=== PATIENT | male | born 1950 | race Caucasian/White ===

== ENCOUNTER 2021-08-17 11:47 | Emergency (ER) | payer OTHER, SELFPAY ==
[2021-08-17] VITALS (11 sets, daily range): BP systolic 146–165; BP diastolic 90–99; PULSE 80–83; RESP 16–17; TEMP 36.7; O2SAT 94–97
--- NOTE | 2021-08-17 12:45 | DI.RAD_ITS ---
Exam(s) XR PORTABLE CHEST AP EXAM: XR PORTABLE CHEST AP CLINICAL HISTORY: covid, cough, leukemia TECHNIQUE: 2D digital imaging was performed of the chest. One image was obtained. An AP view was ob tained. COMPARISON: No exams were available for comparison FINDINGS: MEDIASTINUM: Normal. HEART: Normal. PULMONARY VASCULATURE: Normal. LUNGS: Clear. PLEURAL SPACE: No pleural effusion or pneumothorax. BONE:Within normal limits for the patient's age. OTHER FINDINGS:Normal. IMPRESSION: No acute pulmonary findings. DATA REPOSITORY: RADIATION DOSE DELIVERED:
--- NOTE | 2021-08-17 12:59 | ED.GENADUL_ITS ---
Discharge Plan Disposition Patient Disposition: HOME Condition: Improving Discharge Details Chief Complaint: SOB Clinical Impression: COVID-19, Leukocytosis Primary Care Provider: James Miranda ED Provider: Mau Marc Home Meds and New Rx's Prescriptions: No Action chlorthalidone 25 mg Tablet 25 mg PO DAILY simvastatin 40 mg Tablet 40 mg PO QPM benzonatate 100 mg capsule PO Label Comments: TAKE ONE CAPSULE BY MOUTH THREE TIMES A DAY omeprazole 20 mg capsule,delayed release(DR/EC) 20 mg PO DAILY Label Comments: TAKE 2 CAPSULES BY MOUTH EVERY DAY losartan 100 mg Tablet 100 mg PO DAILY duloxetine 60 mg Capsule,Delayed Release(Dr/Ec) 60 mg PO DAILY Myrbetriq 25 mg Tablet Extended Release 24 Hr 25 mg PO DAILY ibrutinib 140 mg Tablet 140 mg PO TID Discharge Instructions Instructions: Leukocytosis (ED), COVID-19 (Coronavirus Disease 2019) (ED) Additional Instructions: Please follow-up with your transportation security officer/oncologist to review your white blood cell counts. Please stay hydrated; use ibuprofen and/or acetaminophen for fever/body aches. Return to the emergency department if you develop any worsening symptoms such as shortness of breath fevers chills nausea vomiting or other abnormal symptomatology. Medical Decision Making 71-year-old male history of leukemia on oral suppressive medication, no chemotherapy or radiation at this time, presents with body aches fatigue and cough, as well as mild shortness of breath, positive for COVID-19 as an outpatient, generally well-appearing no acute distress not tachycardic, no hypoxia, lungs clear bilaterally, no peripheral edema, likely symptomatic COVID versus must consider superimposed bacterial pneumonia, given age and comorbidities, patient is a candidate and is amenable for antibody infusion. Will administer dexamethasone given body aches and respiratory symptoms, will obtain basic labs to assess patient's white blood cell and red blood cell count as well as electrolytes. Will observe patient after antibody infusion and likely discharge home pending results of x-ray and labs as well as reassessment. 14: 40 patient received bebtelovimab therapy, was observed for an hour without reaction, slightly elevated white blood cell count and leukocyte count, patient was encouraged to follow-up with his transportation security officer/oncologist to review his cell counts. Asymptomatic currently resting comfortably no respiratory distress. Home care instructions and return precautions given. HPI General Date/Time Provider Initiated Documentation: 08/17/21 12:01 . HPI Narrative: 71-year-old male history of leukemia currently on oral suppressive medication, no radiation or chemotherapy, presents with COVID-19, body aches cough mild shortness of breath, referred in by his primary care physician for evaluation. Denies leg swelling or pain. Denies history of thromboembolic phenomenon. Related Data Home Medications Medication Instructions Recorded Confirmed benzonatate 100 mg capsule cap PO 08/17/21 08/17/21 chlorthalidone 25 mg tablet 25 mg PO DAILY 08/17/21 08/17/21 duloxetine 60 mg capsule,delayed 60 mg PO DAILY 08/17/21 08/17/21 release ibrutinib 140 mg tablet 140 mg PO TID 08/17/21 08/17/21 losartan 100 mg tablet 100 mg PO DAILY 08/17/21 08/17/21 mirabegron 25 mg tablet,extended 25 mg PO DAILY 08/17/21 08/17/21 release 24 hr (Myrbetriq) omeprazole 20 mg capsule,delayed 20 mg PO DAILY 08/17/21 08/17/21 release simvastatin 40 mg tablet 40 mg PO QPM 08/17/21 08/17/21 Allergies Allergy/AdvReac Type Severity Reaction Status Date / Time No Known Allergies Allergy Unverified 08/17/21 12:09 General Stated Complaint: SOB BOBO: 3 Review of Systems Narrative: Review of Systems Constitutional: Body aches, fatigue Eyes: negative ENT: negative Cardiovascular: negative Respiratory: Cough Gastrointestinal: negative : negative Musculoskeletal: negative Skin: negative Neurologic: negative Psych: negative PFSH All Active Problems (Updated 08/17/21 @ 14:41 by Mau Marc MD) COVID-19 (Acute) Leukocytosis (Acute) Social History Smoking/Tobacco Use Status: Current every day Tobacco Type: cigarettes Smoking risk assessment performed?: Yes Alcohol Intake: current Alcohol Intake frequency: 0-2 drinks per day Drug use: Never Substance use type: does not use Do you feel safe at home: Yes Do you feel safe in your relationship?: Yes Exam Narrative Exam Narrative: Physical Examination General: alert, awake, cooperative, resting comfortably, no acute distress HEENT: normocephalic, atraumatic; PERRL, EOM intact, conjunctiva normal; no nasal discharge; moist mucous membranes, oral and pharyngeal mucosa normal, tolerating secretions Neck: supple, trachea midline; full ROM Chest: normal to inspection Respiratory: normal respiratory effort, speaking in full sentences, clear to auscultation, no wheezing, rales or rhonchi Cardiac: regular rate, regular rhythm, S1S2 intact, no murmurs rubs or gallops GI: abdomen soft, non-tender, non-distended; no palpable mass or hepatosplenomegaly Skin: no lesions, rashes or trauma appreciated Neuro: AAOx3, normal speech, moving all extremities Psych: Appropriate mood and affect Course Vital Signs Vital signs: Vital Signs Temperature 36.7 C 08/17/21 12:06 Pulse 83 08/17/21 12:06 Respiratory Rate 16 08/17/21 12:06 Blood Pressure 161/94 H 08/17/21 12:06 Pulse Oximetry 97 08/17/21 12:06 Temperature 36.7 C 08/17/21 12:06 Pulse 83 08/17/21 12:06 Respiratory Rate 17 08/17/21 12:14 Respiratory Effort 08/17/21 12:14 Respiratory Depth Normal 08/17/21 12:14 Respiratory Pattern Normal 08/17/21 12:14 Blood Pressure 161/94 H 08/17/21 12:06 Pulse Oximetry 97 08/17/21 12:06
[2021-08-17 13:17] LABS: HCT 41.9 % (40.0-50.0); HGB 13.8 g/dL (13.5-17.5); MCH 29.3 pg (27.0-33.0); MCHC 32.9 % (32.0-36.0); MCV 89 fL (80-95); MPV 10.9 fL (8.0-11.0); Platelet Count 187 10^3/uL (130-400); RBC 4.71 10^6/uL (4.36-5.78); RDW 13.5 % (11.8-14.1); WBC 12.17 10^3/uL (4.4-10.8)
[2021-08-17 13:32] LABS: ALT 21 U/L (16-63); AST 34 U/L (15-37); Albumin 3.7 g/dL (3.4-5.0); Alkaline Phosphatase 119 U/L (46-116); Anion Gap 7.8 mmol/L (3-11); BUN 19 mg/dL (7-18); Bilirubin, Total 0.4 mg/dL (0.2-1.0); CO2 27.2 mmol/L (21.0-32.0); CREATININE 1.4 mg/dL (0.70-1.30); Calcium 9.1 mg/dL (8.5-10.1); Chloride 102 mmol/L (98-107); Glucose 93 mg/dL (74-106); Potassium 4.8 mmol/L (3.5-5.1); Sodium 137 mmol/L (136-145); Total Protein 7.7 g/dL (6.4-8.2)
[2021-08-17 13:40] LABS: Absolute Lymphocyte Count 7.67 10^3/uL (1.2-3.4); Absolute Neutrophil Count 3.41 10^3/uL (1.2-6.7); Atypical Lymphocytes % 5; Diff Comment Manual Differential; RBC Morphology Normal
[2021-08-17] MEDS: Dexamethasone 10 MG/ML VIAL IVP (13:42)
--- NOTE | 2021-08-17 13:47 | DI.VRAD_ITS ---
PROCEDURE INFORMATION: Exam: XR Chest Exam date and time: 08/17/2021 1:24 PM Age: 71 years old Clinical indication: Cough and other: Covid, leukemia TECHNIQUE: Imaging protocol: XR of the chest. Views: 1 view. COMPARISON: No relevant images were readily available for comparison purposes. FINDINGS: Lungs: No consolidation. Pleural spaces: No sizable pleural effusion. No pneumothorax. Heart/Mediastinum: Cardiomediastinal silhouette is within normal limits. Bones/joints: No acute displaced fracture or dislocation. IMPRESSION: No acute cardiopulmonary process. Dictated and Authenticated by: Bishnu Greenfield MD. Ordering:SOFIA Lenó MD
--- NOTE | 2021-08-17 14:27 | NUR.NOTE ---
pt is drinking water and randell mildred Nursing Note:
== END 2021-08-17 15:01 | disposition home or self-care (01) ==
PROVIDERS: Emergency Provider Emergency Medicine; PCP Nurse Practitioner Family
DX: U07.1 COVID-19 (principal); D72.829 Elevated white blood cell count, unspecified; R05.1 Acute cough; C95.00 Acute leukemia of unspecified cell type not having achieved remission
CPT/HCPCS: 80053; 96374; 96375; 99284; Q0222; 71045; 85025; 99283; J1100

== ENCOUNTER 2021-11-02 20:51 | Emergency (ER) | payer OTHER, MEDICARE, BC, SELFPAY ==
[2021-11-02 20:57] VITALS: BP 115/84; PULSE 91; RESP 16; TEMP 36.9; O2SAT 98
--- NOTE | 2021-11-02 21:00 | DI.CT_ITS ---
Exam(s) CT LUMBAR SPINE W EXAM: CT LUMBAR SPINE W CLINICAL HISTORY: cancer patient, sudden righ leg weakness and numbn. TECHNIQUE: Imaging Protocol: Axial computed tomography images with coronal and sagittal reformatted images were created and reviewed CONTRAST MATERIAL: Noncontrast COMPARISON: No exams were available for comparison FINDINGS: Bones: The last intervertebral disc space is designated the L5/S1 level for the numbering purpose of this examination. The vertebral body heights are well maintained. Alignment is satisfactory. No frac ture is seen. No destructive bony lesions. There are mild degenerative disc changes as well as facet degenerative changes. The discs are normal in in height throughout and show mild bulging. No central canal stenosis or neural foraminal narrow ing is seen. Soft Tissues: The visualized SI joints and sacrum are will maintained. The paraspinal soft tissues a re unremarkable. There are atherosclerotic changes of the aorta and iliac arteries with some narrowin g of the luminal diameter of the iliac arteries.. IMPRESSION: Mild degenerative changes. No focal disc herniation, neural foraminal narrowing or central canal torie nosis. No suspicious bony lesions. RADIATION DOSE DELIVERED: 477.48mGy.cm Total DLP DATA REPOSITORY: All CT scans at this facility are submitted to the National Radiology Data Registry (NRDR) Dose Index Registry (DIR) with the [employer] (A[employer]). RADIATION OPTIMIZATION: All CT scans at this facility use at least one of these dose optimization te chniques: automated exposure control; mA and/or kV adjustment per patient size (includes targeted exa ms where dose is matched to clinical indication); or iterative reconstruction.
[2021-11-02] MEDS: methylPREDNISolone SUCC 125 MG VIAL IVP (21:17)
--- NOTE | 2021-11-02 21:18 | ED.GENADUL_ITS ---
Discharge Plan Disposition Patient Disposition: HOME Condition: Good Discharge Details Clinical Impression: Lumbar radiculopathy, acute Primary Care Provider: James Miranda ED Provider: Sreedhar Barkley Home Meds and New Rx's Prescriptions: Continued chlorthalidone 25 mg Tablet 25 mg PO DAILY omeprazole 20 mg capsule,delayed release(DR/EC) 20 mg PO DAILY Label Comments: TAKE 2 CAPSULES BY MOUTH EVERY DAY losartan 100 mg Tablet 100 mg PO DAILY Myrbetriq 25 mg Tablet Extended Release 24 Hr 25 mg PO DAILY ibrutinib 140 mg Tablet 140 mg PO TID atorvastatin 40 mg Tablet 40 mg PO HS amlodipine 5 mg Tablet 5 mg PO DAILY Discharge Instructions Instructions: Lumbar Radiculopathy (ED) Additional Instructions: At this time you have what is called lumbar radiculopathy where the disc in your lumbar spine is pushing on the nerve that is causing the numbness tingling and mild weakness in your leg. Please take the steroid pills as directed. Take 60 mg every day for the next 4 days. Do not take any Tylenol or Motrin or aspirin or spicy foods as this could cause an irritation in your stomach. Please use a heating pad on your back if you do develop back pain. Please follow-up closely with the CT for further discussion of potential MRI, and potential orthopedic spine consult. If you notice any worsening of your symptoms, or any new symptoms such as vomiting, diarrhea, fever, chills, shortness of breath, chest pain, numbness, weakness, numbness or tingling in your groin, loss of control of her bowels or bladder, or fainting , please return immediately to the emergency department for reevaluation. Please follow up with your primary care provider as soon as possible for reassessment and reevaluation. As always, it was a pleasure participating in your medical care today. Referrals: James Miranda [Primary Care Provider] - Medical Decision Making This is a very pleasant 71-year-old male with a past medical history of leukemia for which he is not actively being treated for, but will be starting chemotherapy shortly but who is taking ibrutinib, hypertension, high cholesterol, who presents today for evaluation of right lower extremity weakness and numbness. Patient states that yesterday while at the CT he had a brief episode lasting about 10 seconds where his entire right leg felt numb and tingly. This was while he was walking. It resolved completely on its own. And then last evening at about 6 PM while he was laying on the couch his whole leg again felt like it was asleep, and he noticed it became significantly weak. He had no heavy lifting trauma or twisting prior to this. Symptoms persisted throughout the evening the following day and continued through tonight. He has noticed that his leg is notably weak when walking but he is still able to walk with a limp. He denies any back pain or leg pain. He denies any abdominal pain chest pain or shortness of breath. No history of back injuries or previous back surgeries. No other complaints at this time. He did not take any medications to help with the symptoms. He denies ever having symptoms like this before. Patient denies any saddle anesthesia, numbness or tingling in the groin, change in sensation when wiping. Patient denies any change in sensation during sexual intercourse, difficulty achieving or maintaining an erection or ejaculation, bowel or bladder incontinence, leakage, or retention. Patient denies any at ypical falls. Exam demonstrates intact strength strength bilaterally for the lower extremities, 5 out of 5 for the left, 4 out of 5 for the right. Reflexes intact, sensation intact however the patient does demonstrate continued subjective numbness without palpation. He feels like my legs asleep. Vascular exam demonstrates no deficits. Reflexes are intact. Femoral artery demonstrates good pulse. Rectal exam and spinal assessment demonstrate no tenderness to rectal tone diminishment. Differential is highest for peripheral neuropathy/radiculopathy as a cause of his weakness. May have been secondary to a slipped disc, but also there is concern for potential mass or lesion secondary to his history of leukemia. We will get a CT scan with contrast to further evaluate. There is no evidence of focal neurologic deficit for the rest of the patient's exam to suggest a central etiology. Will monitor closely and reassess. We will give steroids here. 11:[address] scan shows evidence of mild disc bulging throughout the lumbar spine. No evidence of central canal compression. Laboratory work-up is stable aside from an elevated white count which correlates with his chronic disease. Electrolytes stable, patient still shows no signs of cauda equina syndrome. Patient is able to ambulate well, he does have a cane. Patient stable for discharge and she shows currently no emergent signs of cord compression. Will recommend close follow-up with his primary care provider and potential spine surgery on an outpatient basis. We will give a prednisone pack for the next 4 days. Since [facility] he would not be able to get it until later this week, and so we will give him the appropriate dose here for completion of his prescription on an outpatient basis. Will recommend 60 mg daily for the next 4 days. I have extensively reviewed the treatment plan and discharge instructions with the patient. I have addressed all patient concerns at this time. The patient was made aware of what symptoms to monitor for that would warrant a return to the emergency department. Discussed the plan with the patient, they demonstrate verbal understanding and agreement with our assessment and plan at this time. The documentation in this chart was dictated using [employer] dictation software. Please excuse any dictation errors. FINDINGS: Bones/joints: No acute fracture. Normal alignment. No lytic destructive process. Faint sclerosis in the left iliac bone measuring about 10 mm has some punctate foci of trabecular coarsening that imply that this is associated with a hemangioma, with some fatty lucency of cancellous bone adjacent. This could be easily confirmed by enhanced MRI if desired. Tiny bone island right iliac axial image 70, 3 mm. Discs/Spinal canal/Neural foramina: There are mild degenerative multilevel disc protrusions, bulge like L1-L2 and L2-L3. L3-L4: Mild left eccentric disc protrusion into the foramen without significant foraminal encroachment. No central stenosis. L4-L5: Mild disc bulging. No central stenosis. L5-S1: Mild right eccentric disc protrusion without central or foraminal encroachment. Soft tissues: No paraspinous mass apparent. Moderate aortoiliac calcification without aneurysm. Partial imaging of the dome of the bladder demonstrates trabeculation of the wall indicating probable muscular hypertrophy. IMPRESSION: No fracture or destructive process. 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 Thank you for allowing us to participate in the care of your patient. Dictated and Authenticated by: Beni Lovett MD 11/02/2021 10:44 PM Eastern Time ([place] & [place]) HPI General Date/Time Provider Initiated Documentation: 11/02/21 20:53 . HPI Narrative: This is a very pleasant 71-year-old male with a past medical history of leukemia for which he is not actively being treated for, but will be starting chemotherapy shortly but who is taking ibrutinib, hypertension, high cholesterol, who presents today for evaluation of right lower extremity weakness and numbness. Patient states that yesterday while at the CT he had a brief episode lasting about 10 seconds where his entire right leg felt numb and tingly. This was while he was walking. It resolved completely on its own. And then last evening at about 6 PM while he was laying on the couch his whole leg again felt like it was asleep, and he noticed it became significantly weak. He had no heavy lifting trauma or twisting prior to this. Symptoms persisted throughout the evening the following day and continued through tonight. He has noticed that his leg is notably weak when walking but he is still able to walk with a limp. He denies any back pain or leg pain. He denies any abdominal pain chest pain or shortness of breath. No history of back injuries or previous back surgeries. No other complaints at this time. He did not take any medications to help with the symptoms. He denies ever having symptoms like this before. Patient denies any saddle anesthesia, numbness or tingling in the groin, change in sensation when wiping. Patient denies any change in sensation during sexual intercourse, difficulty achieving or maintaining an erection or ejaculation, bowel or bladder incontinence, leakage, or retention. Patient denies any atypical falls. Related Data Home Medications Medication Instructions Recorded Confirmed chlorthalidone 25 mg tablet 25 mg PO DAILY 08/17/21 11/02/21 ibrutinib 140 mg tablet 140 mg PO TID 08/17/21 11/02/21 losartan 100 mg tablet 100 mg PO DAILY 08/17/21 11/02/21 mirabegron 25 mg tablet,extended 25 mg PO DAILY 08/17/21 11/02/21 release 24 hr (Myrbetriq) omeprazole 20 mg capsule,delayed 20 mg PO DAILY 08/17/21 11/02/21 release amlodipine 5 mg tablet 5 mg PO DAILY 11/02/21 11/02/21 atorvastatin 40 mg tablet 40 mg PO HS 11/02/21 11/02/21 Allergies Allergy/AdvReac Type Severity Reaction Status Date / Time No Known Allergies Allergy Unverified 11/02/21 21:03 General Stated Complaint: GenMedical BOBO: 3 Review of Systems All systems reviewed & are unremarkable except as noted in HPI and below PFSH All Active Problems (Updated 11/02/21 @ 23:17 by Sreedhar Barkley DO) COVID-19 (Acute) Lumbar radiculopathy, acute (Acute) Medical History Hypertension Social History Smoking/Tobacco Use Status: Current every day Tobacco Type: cigarettes Smoking risk assessment performed?: Yes Alcohol Intake: current Alcohol Intake frequency: 0-2 drinks per day Drug use: Never Substance use type: does not use Do you feel safe at home: Yes Do you feel safe in your relationship?: Yes Exam Narrative Exam Narrative: 1.Const: Well-nourished, Well-developed, appearing stated age 2.Eyes: PERRL, no conjunctival injection, and symmetrical lids. 3.ENT: Atraumatic external nose and ears. Moist MM. Neck: Symmetric, trachea midline, No thyromegaly. 4.CVS: +S1/S2, No murmurs or gallops. Peripheral pulses 2+ and equal in all extremities. Brisk capillary refill in all extremities. 5.RESP: Unlabored respiratory effort. Clear to auscultation bilaterally. No wheezes rales or rhonchi 6.GI: Soft, Nontender/Nondistended, No hepatosplenomegaly. No guarding or rebound. 7.MSK: Normocephalic/Atraumatic, Extremities w/o deformity or ttp No cyanosis or clubbing, Normal movement of all extremities No midline tenderness to palpation over the CTLS spine. Normal ROM in flexion, extension, side bend, and rotation. Patient has +5 out of 5 strength in the left lower extremities in dorsiflexion and plantarflexion, knee flexion and extension, hip flexion and extension. Right lower extremity demonstrates 4 out of 5 strength for plantar and dorsiflexion of the foot, and 4 out of 5 strength for flexion and extension at the hip and knee. +2 patellar reflexes bilaterally. Sensation is notably intact throughout in all areas including the inner thighs, the entire right lower extremity, and the foot. Downward Babinski is present bilaterally. Normal strength for dorsiflexion and plantar flexion of the great toe bilaterally. There is +2 over 2 dorsalis pedis pulses bilaterally. There is normal sensation to the skin with light touch at the foot, knee, and hip. Normal saddle sensation. Good sensation over the deep sural nerve area bilaterally. Rectal exam demonstrates good rectal tone and perirectal sensation. Reflexes are +2 over 4 in the patellar reflex bilaterally. Patient demonstrates +2 dorsalis pedis posterior tibial pulse bilaterally. Brisk capillary refill for all toes less than 3 seconds. +2 femoral pulses bilaterally. 8.Skin: Warm, Dry. No rashes or lesions. 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 Sensation grossly intact, please see musculoskeletal 10.Psych: (AAO) x3. Appropriate mood and affect Course Vital Signs Vital signs: Vital Signs Temperature 36.9 C 11/02/21 20:57 Pulse 91 H 11/02/21 20:57 Respiratory Rate 16 11/02/21 20:57 Blood Pressure 115/84 11/02/21 20:57 Pulse Oximetry 98 11/02/21 20:57 Temperature 36.9 C 11/02/21 20:57 Pulse 91 H 11/02/21 20:57 Respiratory Rate 16 11/02/21 20:57 Respiratory Effort Non-Labored 11/02/21 21:05 Respiratory Depth Normal 11/02/21 21:05 Respiratory Pattern Normal 11/02/21 21:05 Blood Pressure 115/84 11/02/21 20:57 Pulse Oximetry 98 11/02/21 20:57
[2021-11-02 21:25] LABS: Abs Immature Grans 0.06 10^3/uL (0.0-0.06); HCT 42.9 % (40.0-50.0); MCH 28.9 pg (27.0-33.0); MCHC 32.6 % (32.0-36.0); MCV 89 fL (80-95); MPV 10.9 fL (8.0-11.0); Platelet Count 272 10^3/uL (130-400); RBC 4.84 10^6/uL (4.36-5.78); RDW-SD 42.1 fL; WBC 19.57 10^3/uL (4.4-10.8)
[2021-11-02 21:37] LABS: Absolute Lymphocyte Count 12.72 10^3/uL (1.2-3.4); Absolute Monocyte Count 0.78 10^3/uL (0.1-0.8); Absolute Neutrophil Count 5.87 10^3/uL (1.2-6.7); Diff Comment Manual Differential
[2021-11-02 21:43] LABS: ALT 17 U/L (16-63); AST 11 U/L (15-37); Albumin 3.9 g/dL (3.4-5.0); Alkaline Phosphatase 117 U/L (46-116); Anion Gap 8.6 mmol/L (3-11); BUN 21 mg/dL (7-18); Bilirubin, Total 0.3 mg/dL (0.2-1.0); CO2 29.4 mmol/L (21.0-32.0); CREATININE 1.3 mg/dL (0.70-1.30); Calcium 8.9 mg/dL (8.5-10.1); Chloride 101 mmol/L (98-107); Estimated GFR 54.57 (mL/min/1.73m2); Glucose 108 mg/dL (74-106); Potassium 3.6 mmol/L (3.5-5.1); Sodium 139 mmol/L (136-145); Total Protein 7.9 g/dL (6.4-8.2)
--- NOTE | 2021-11-02 22:45 | DI.VRAD_ITS ---
PROCEDURE INFORMATION: Exam: CT Lumbar Spine With Contrast Exam date and time: 11/02/2021 9:53 PM Age: 71 years old Clinical indication: Condition or disease; Cancer, metastatic (secondary site lumbar) TECHNIQUE: Imaging protocol: Computed tomography of the lumbar spine with contrast. Contrast material: OMNIPAQUE 350; Contrast volume: 100 ml; Contrast route: INTRAVENOUS (IV); COMPARISON: No relevant prior studies available. FINDINGS: Bones/joints: No acute fracture. Normal alignment. No lytic destructive process. Faint sclerosis in the left iliac bone measuring about 10 mm has some punctate foci of trabecular coarsening that imply that this is associated with a hemangioma, with some fatty lucency of cancellous bone adjacent. This could be easily confirmed by enhanced MRI if desired. Tiny bone island right iliac axial image 70, 3 mm. Discs/Spinal canal/Neural foramina: There are mild degenerative multilevel disc protrusions, bulge like L1-L2 and L2-L3. L3-L4: Mild left eccentric disc protrusion into the foramen without significant foraminal encroachment. No central stenosis. L4-L5: Mild disc bulging. No central stenosis. L5-S1: Mild right eccentric disc protrusion without central or foraminal encroachment. Soft tissues: No paraspinous mass apparent. Moderate aortoiliac calcification without aneurysm. Partial imaging of the dome of the bladder demonstrates trabeculation of the wall indicating probable muscular hypertrophy. IMPRESSION: No fracture or destructive process. 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 Dictated and Authenticated by: Beni Lovett MD. Ordering:JANE Eli MD
[2021-11-02 23:33] VITALS: BP 184/99; PULSE 84; RESP 18; TEMP 36.9; O2SAT 99
[2021-11-02] MEDS: predniSONE 20 MG TAB 240 MG PO (23:34)
== END 2021-11-02 23:42 | disposition home or self-care (01) ==
PROVIDERS: Emergency Provider Student in an Organized Health Care Education/Training Program; PCP Nurse Practitioner Family
DX: M54.16 Radiculopathy, lumbar region (principal)
CPT/HCPCS: 36415; 80053; 96374; 99284; 72132; 85025; 99283; J2930; J7512

== ENCOUNTER 2022-07-11 13:24 | Emergency (ER) | payer OTHER, MEDICARE, BC, SELFPAY ==
[2022-07-11 13:29] VITALS: BP 181/73; PULSE 80; RESP 20; TEMP 36.7; O2SAT 98
--- NOTE | 2022-07-11 14:00 | DI.RAD_ITS ---
Exam(s) XR CHEST 2V PA LATERAL EXAM: XR CHEST 2V PA LATERAL CLINICAL HISTORY: chills. TECHNIQUE: 2D digital imaging was performed. COMPARISON: CR,XR XR PORTABLE CHEST AP from 08/17/2021 FINDINGS: 2 views: Heart size is normal. The mediastinum is not widened. No left-sided infiltrate evident. Slight blunting of left costophrenic angle is unchanged. On the right side there is a 1 cm nodular density above the medial aspect of the hemidiaphragm adjace nt to the heart border., possibly significant. IMPRESSION: Possible subtle 1 cm right lung nodule. Chronically blunted left costophrenic angle which may indicate small amount of pleural fluid at this location. DATA REPOSITORY: RADIATION DOSE DELIVERED:
[2022-07-11 14:48] LABS: HCT 44.2 % (40.0-50.0); HGB 14.8 g/dL (13.5-17.5); MCH 29.7 pg (27.0-33.0); MCHC 33.5 % (32.0-36.0); MCV 89 fL (80-95); MPV 11.6 fL (8.0-11.0); RBC 4.98 10^6/uL (4.36-5.78); RDW 13.6 % (11.8-14.1); RDW-SD 44.5 fL; WBC 19.83 10^3/uL (4.4-10.8)
[2022-07-11 15:04] LABS: ALT 19 U/L (16-63); AST 15 U/L (15-37); Albumin 4.2 g/dL (3.4-5.0); Alkaline Phosphatase 129 U/L (46-116); Anion Gap 5.8 mmol/L (3-11); BUN 22 mg/dL (7-18); Bilirubin, Total 0.4 mg/dL (0.2-1.0); CO2 30.2 mmol/L (21.0-32.0); CREATININE 1.3 mg/dL (0.70-1.30); Calcium 9.9 mg/dL (8.5-10.1); Chloride 102 mmol/L (98-107); Glucose 145 mg/dL (74-106); Sodium 138 mmol/L (136-145); Total Protein 8.1 g/dL (6.4-8.2)
[2022-07-11 15:08] LABS: Absolute Neutrophil Count 8.13 10^3/uL (1.2-6.7); Atypical Lymphocytes % 5
[2022-07-11 15:09] LABS: Diff Comment Manual Differential; RBC Morphology Normal
[2022-07-11 15:10] LABS: Platelet Count 237 10^3/uL (130-400)
[2022-07-11 15:25] LABS: COVID-19 PCR Negative (Negative); Influenza A PCR Negative (Negative); Influenza B PCR Negative (Negative); RSV PCR Negative (Negative)
[2022-07-11 15:26] LABS: Source Nasopharynx
[2022-07-11 15:28] LABS: Bilirubin Small (Negative); Blood Negative (Negative); Clarity Clear (Clear); Glucose Negative (Negative); Ketones Negative (Negative); Leukocyte Esterase Negative (Negative); Nitrite Negative (Negative); Specific Gravity >= 1.030 (1.005-1.025)
[2022-07-11 15:38] VITALS: BP 163/92; PULSE 67; RESP 18; TEMP 36.7; O2SAT 95
[2022-07-11 15:38] LABS: Bacteria Rare HPF (Negative); C & S Indicated? No; Casts Negative LPF (Negative); Crystals Negative HPF (Negative); Epithelial Cells Rare HPF (Negative); Mucus Trace (Negative); RBC 0-2 HPF (0-2); WBC 0-2 HPF (0-5)
--- NOTE | 2022-07-11 15:49 | W.ED.GENAD ---
Discharge Plan Disposition Patient Disposition: Home Discharge Details Clinical Impression: Chills Primary Care Provider: James Miranda ED Provider: Stella Chavez Home Meds and New Rx's Prescriptions: Continued chlorthalidone 25 mg Tablet 25 mg PO DAILY omeprazole 20 mg capsule,delayed release(DR/EC) 20 mg PO DAILY Patient Comments: TAKE 2 CAPSULES BY MOUTH EVERY DAY losartan 100 mg Tablet 100 mg PO DAILY Myrbetriq 25 mg Tablet Extended Release 24 Hr 25 mg PO DAILY ibrutinib 140 mg Tablet 140 mg PO TID atorvastatin 40 mg Tablet 40 mg PO HS amlodipine 5 mg Tablet 5 mg PO DAILY Discharge Instructions Additional Instructions: Please follow-up with your oncologist, let them know your white blood cell count is 19,000, this is what it was last year as well, you should have this rechecked at your next appointment The remainder of your labs including your lactate are within normal limits, your blood cultures are pending, we will call you if these are positive Your chest x-ray and urinalysis do not show evidence of acute abnormality, you do have a nodule on your chest x-ray You should follow-up on this nodule with your doctor at your scheduled appointment on the on all your prescribed medications She did develop a temperature over 100.4 and persistent chills, please be reassessed immediately Referrals: James Miranda [Primary Care Provider] - 1 day Discharge Data Discharge Date/Time-TO BE ENTERED AT DEPARTURE: 07/11/22 15:59 Medical Decision Making 71-year-old male presenting for chills, secondary to comorbidities and current complaints, I did order blood cultures, lactic, diagnostic blood work, white blood cell count of 19,000, consistent with his [place] level, chest x-ray and urinalysis do not show evidence of acute infection, blood cultures pending, lactate negative Encouraged to follow the oncologist, no indication for admission or any emergent intervention Discharged home asymptomatic in stable condition Return precautions reviewed and patient expressed understanding HPI General Date/Time Provider Initiated Documentation: 07/11/22 13:56. HPI Narrative: This 71-year-old male presents with chills for the past 24 hours intermittently. Denies any current symptoms. Denies any chest pain, shortness of breath, dizziness, weakness, fever, urinary symptoms. Denies any stiff neck. 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 Does report that he flew from [place] which is where he states during the winter months on the . Did recently increase his oral chemotherapy from 2 pills to 3 pills. Related Data Home Medications Medication Instructions Recorded Confirmed chlorthalidone 25 mg tablet 25 mg PO DAILY 08/17/21 07/11/22 ibrutinib 140 mg tablet 140 mg PO TID 08/17/21 07/11/22 losartan 100 mg tablet 100 mg PO DAILY 08/17/21 07/11/22 mirabegron 25 mg tablet,extended 25 mg PO DAILY 08/17/21 07/11/22 release 24 hr (Myrbetriq) omeprazole 20 mg capsule,delayed 20 mg PO DAILY 08/17/21 07/11/22 release amlodipine 5 mg tablet 5 mg PO DAILY 11/02/21 11/02/21 atorvastatin 40 mg tablet 40 mg PO HS 11/02/21 07/11/22 Allergies Allergy/AdvReac Type Severity Reaction Status Date / Time No Known Allergies Allergy Unverified 07/11/22 13:53 General Stated Complaint: GenMedical BOBO: 4 PFSH All Active Problems (Updated 07/11/22 @ 15:48 by FLORY Muir) COVID-19 (Acute) Chills (Acute) Medical History Hypertension Social History Smoking/Tobacco Use Status: Current every day Tobacco Type: cigarettes Smoking risk assessment performed?: Yes Alcohol Intake: current Alcohol Intake frequency: 0-2 drinks per day Drug use: Never Substance use type: does not use Do you feel safe at home: Yes Do you feel safe in your relationship?: Yes Exam Narrative Exam Narrative: Patient is calm, cooperative, no acute distress, no meningismus, moist mucous membranes, pupils equal round reactive to light accommodation, lungs clear to auscultation, cardiac rate rhythm regular, no abdominal tenderness, fully alert and oriented, no rashes or lesions noted Course Vital Signs Vital signs: Vital Signs Temperature 36.7 C 07/11/22 13:29 Pulse 80 07/11/22 13:29 Respiratory Rate 20 07/11/22 13:29 Blood Pressure 181/73 H 07/11/22 13:29 Pulse Oximetry 98 07/11/22 13:29 Temperature 36.7 C 07/11/22 15:38 Temperature Source Temporal Artery Scan 07/11/22 15:38 Pulse 67 07/11/22 15:38 Respiratory Rate 18 07/11/22 15:38 Respiratory Effort Normal, Non-Labored 07/11/22 15:42 Respiratory Depth Normal 07/11/22 15:42 Respiratory Pattern Normal 07/11/22 15:42 Blood Pressure 163/92 H 07/11/22 15:38 Blood Pressure Position Sitting 07/11/22 13:29 Pulse Oximetry 95 07/11/22 15:38 Oxygen Delivery Method Room Air 07/11/22 15:38 Oxygen Flow Rate 0 07/11/22 15:38 Pain Level 0 07/11/22 13:29 Lab/Test Results Lab/Test Results: 07/11/22 15:10 Blood Blood Culture - Pending 07/11/22 14:31 Blood Blood Culture - Pending Laboratory Tests Range/Units 07/11/22 07/11/22 07/11/22 14:31 14:31 14:31 WBC (4.4-10.8) 10^3/uL RBC (4.36-5.78) 10^6/uL Hgb (13.5-17.5) g/dL Hct (40.0-50.0) % MCV (80-95) fL MCH (27.0-33.0) pg MCHC (32.0-36.0) % RDW (11.8-14.1) % Plt Count (130-400) 10^3/uL MPV (8.0-11.0) fL Immature Gran % Neutrophils % Lymphocytes % Atypical Lymphs % Monocytes % Eosinophils % Basophils % Nucleated RBC % (0.0-0.3) % Absolute Neutrophils (1.2-6.7) 10^3/uL Absolute Lymphocytes (1.2-3.4) 10^3/uL Absolute Monocytes (0.1-0.8) 10^3/uL Absolute Eosinophils (0.0-0.7) 10^3/uL Absolute Basophils (0.0-0.2) 10^3/uL RBC Morphology VBG Lactate (0.6-1.4) mmol/L 1.0 Sodium (136-145) mmol/L 138 Potassium (3.5-5.1) mmol/L 4.0 Chloride (98-107) mmol/L 102 Carbon Dioxide (21.0-32.0) mmol/L 30.2 Anion Gap (3-11) mmol/L 5.8 BUN (7-18) mg/dL 22 H Creatinine (0.70-1.30) mg/dL 1.3 Est GFR (CKD-EPI 2020) (mL/min/1.73m2) 59.10 Glucose (74-106) mg/dL 145 H Calcium (8.5-10.1) mg/dL 9.9 Total Bilirubin (0.2-1.0) mg/dL 0.4 AST (15-37) U/L 15 ALT (16-63) U/L 19 Alkaline Phosphatase (46-116) U/L 129 H Total Protein (6.4-8.2) g/dL 8.1 Albumin (3.4-5.0) g/dL 4.2 Urine Color (Yellow) Urine Clarity (Clear) Urine pH (5-8) Ur Specific Addison (1.005-1.025) Urine Protein (Negative) mg/dL Urine Ketones (Negative) mg/dL Urine Blood (Negative) Urine Nitrite (Negative) Urine Bilirubin (Negative) Urine Urobilinogen (Up to 0.2) mg/dL Ur Leukocyte Esterase (Negative) Urine RBC (0-2) HPF Urine WBC (0-5) HPF Ur Epithelial Cells (Negative) HPF Urine Crystals (Negative) HPF Urine Bacteria (Negative) HPF Urine Casts (Negative) LPF Urine Mucus (Negative) Ur Culture Indicated? Urine Glucose (Negative) mg/dL COVID-19 Source Nasopharynx SARS-CoV-2 (PCR) (Negative) Negative Influenza Type A (PCR) (Negative) Negative Influenza Type B (PCR) (Negative) Negative RSV (PCR) (Negative) Negative Range/Units 07/11/22 07/11/22 14:31 15:14 WBC (4.4-10.8) 10^3/uL 19.83 H RBC (4.36-5.78) 10^6/uL 4.98 Hgb (13.5-17.5) g/dL 14.8 Hct (40.0-50.0) % 44.2 MCV (80-95) fL 89 MCH (27.0-33.0) pg 29.7 MCHC (32.0-36.0) % 33.5 RDW (11.8-14.1) % 13.6 Plt Count (130-400) 10^3/uL 237 MPV (8.0-11.0) fL 11.6 H Immature Gran % 0.0 Neutrophils % 41.0 Lymphocytes % 52.0 Atypical Lymphs % 5 Monocytes % 1.0 Eosinophils % 1.0 Basophils % 0.0 Nucleated RBC % (0.0-0.3) % 0.0 Absolute Neutrophils (1.2-6.7) 10^3/uL 8.13 H Absolute Lymphocytes (1.2-3.4) 10^3/uL 11.30 H Absolute Monocytes (0.1-0.8) 10^3/uL 0.20 Absolute Eosinophils (0.0-0.7) 10^3/uL 0.20 Absolute Basophils (0.0-0.2) 10^3/uL 0.00 RBC Morphology Normal VBG Lactate (0.6-1.4) mmol/L Sodium (136-145) mmol/L Potassium (3.5-5.1) mmol/L Chloride (98-107) mmol/L Carbon Dioxide (21.0-32.0) mmol/L Anion Gap (3-11) mmol/L BUN (7-18) mg/dL Creatinine (0.70-1.30) mg/dL Est GFR (CKD-EPI 2020) (mL/min/1.73m2) Glucose (74-106) mg/dL Calcium (8.5-10.1) mg/dL Total Bilirubin (0.2-1.0) mg/dL AST (15-37) U/L ALT (16-63) U/L Alkaline Phosphatase (46-116) U/L Total Protein (6.4-8.2) g/dL Albumin (3.4-5.0) g/dL Urine Color (Yellow) Yellow Urine Clarity (Clear) Clear Urine pH (5-8) 6.0 Ur Specific Addison (1.005-1.025) >= 1.030 H Urine Protein (Negative) mg/dL Trace H Urine Ketones (Negative) mg/dL Negative Urine Blood (Negative) Negative Urine Nitrite (Negative) Negative Urine Bilirubin (Negative) Small H Urine Urobilinogen (Up to 0.2) mg/dL 1.0 H Ur Leukocyte Esterase (Negative) Negative Urine RBC (0-2) HPF 0-2 Urine WBC (0-5) HPF 0-2 Ur Epithelial Cells (Negative) HPF Rare Urine Crystals (Negative) HPF Negative Urine Bacteria (Negative) HPF Rare Urine Casts (Negative) LPF Negative Urine Mucus (Negative) Trace Ur Culture Indicated? No Urine Glucose (Negative) mg/dL Negative COVID-19 Source SARS-CoV-2 (PCR) (Negative) Influenza Type A (PCR) (Negative) Influenza Type B (PCR) (Negative) RSV (PCR) (Negative) PAWSS Have you Been Recently Intoxicated or Drunk Within the Last 30 days?: No Have you Ever Experienced Previous Episodes of Alcohol Withdrawal?: No Have you ever Experienced Withdrawal Seizures?: No Have you ever Experienced Delirium Tremens(DT)s?: No Have you ever undergone Alcohol Rehabilitation Treatment (i.e, inpt ot outpatient treatment programs)?: No Have you ever Experienced Blackouts?: No Have you ever Combined Alcohol with other Downers within the last 90 days?: No Have you ever Combined Alcohol with any other Substance of Abuse during the last 90 days?: No Positive Blood Alcohol level on Presentation? [PCS.BAL]: No Evidence of Increased Autonomic Activity (i.e. HR>120, tremor, sweating, agitation, nausea)?: No Result: 0
== END 2022-07-11 15:59 | disposition home or self-care (01) ==
PROVIDERS: Emergency Provider Physician Assistant; PCP Nurse Practitioner Family
DX: R68.83 Chills (without fever) (principal); I10 Essential (primary) hypertension; C91.10 Chronic lymphocytic leukemia of B-cell type not having achieved remission; Z20.822 Contact with and (suspected) exposure to COVID-19
CPT/HCPCS: 36415; 80053; 87040; 87637; 99283; 71046; 81003; 81015; 83605; 85025

== ENCOUNTER 2022-12-07 10:08 | Emergency (ER) | payer OTHER, SELFPAY ==
[2022-12-07 10:22] VITALS: BP 127/65; PULSE 74; RESP 20; TEMP 36.8; O2SAT 100
--- NOTE | 2022-12-07 10:33 | ED.GENADUL_ITS ---
Discharge Plan Disposition Patient Disposition: Home Condition: Stable Discharge Details Clinical Impression: COVID Primary Care Provider: JACQUELINE PAULSON ED Provider: Elias Armenta Home Meds and New Rx's Prescriptions: Continued chlorthalidone 25 mg Tablet 25 mg PO DAILY omeprazole 20 mg capsule,delayed release(DR/EC) 20 mg PO DAILY Patient Comments: TAKE 2 CAPSULES BY MOUTH EVERY DAY losartan 100 mg Tablet 100 mg PO DAILY Myrbetriq 25 mg Tablet Extended Release 24 Hr 25 mg PO DAILY aspirin 81 mg Tablet,Delayed Release (Dr/Ec) 81 mg PO DAILY cholecalciferol (vitamin D3) 50 mcg (2,000 unit) Tablet 50 mcg PO DAILY cyanocobalamin (vitamin B-12) 1,000 mcg Capsule 1,000 mcg PO DAILY Held ibrutinib 140 mg Tablet 140 mg PO TID Hold Instructions: Resume on 12/14/22. atorvastatin 40 mg Tablet 40 mg PO HS Hold Instructions: Resume on 12/12/22. amlodipine 5 mg Tablet 5 mg PO DAILY Hold Instructions: Resume on 12/12/22. Discharge Instructions Additional Instructions: IF you feel more ill, have worsening trouble breathing or chest pain return to the emergency department If you test positive for COVID-19,?stay home for at least 5 days and isolate from others in your home. You are?likely most infectious during these first 5 days. Your symptoms are improving You?may end isolation after day 5?if: * You are fever-free for 24 hours (without the use of fever-reducing medication). Your symptoms are not improving Continue to isolate?until: * You are fever-free for 24 hours (without the use of fever-reducing medication). * Your symptoms are improving.?1 Medical Decision Making 72 yo male with hx htn and leukemia comes in with runny nose, dry cough and body aches since Thursday and at home covid test yesterday was positive. No fevers, c hest pain, dyspnea. HE arrives stable, 100% on room air speaking in full sentences in no distress. Clear lungs, no murmurs, no leg swelling, ambulating without no signs of respiratory distress. Do not feel any testing other then confirming covid positive and also checking renal function indicated at this time. mildly decreased renal function, will start on renal dosing paxlovid and hold some of his home medications. Return precautions given Differential Diagnosis Differential Diagnosis: covid, viral illness HPI General Mode of arrival: ambulatory . Date/Time Provider Initiated Documentation: 12/07/22 10:20 . Limitations to Documentation: no limitations . Information obtained by: patient . History of Present Illness 72 year old M presents to the emergency department with the chief complaint of covid , described as mild, Patient started experiencing this day(s) (2) and it has been constant. No relieving factors improve symptom(s), No exacerbating factors reported . Patient notes cough; denies chest pain. Patient did receive the following treatments prior to arrival, none Related Data Home Medications Medication Instructions Recorded Confirmed chlorthalidone 25 mg tablet 25 mg PO DAILY 08/17/21 12/07/22 ibrutinib 140 mg tablet 140 mg PO TID 08/17/21 12/07/22 losartan 100 mg tablet 100 mg PO DAILY 08/17/21 12/07/22 mirabegron 25 mg tablet,extended 25 mg PO DAILY 08/17/21 12/07/22 release 24 hr (Myrbetriq) omeprazole 20 mg capsule,delayed 20 mg PO DAILY 08/17/21 12/07/22 release amlodipine 5 mg tablet 5 mg PO DAILY 11/02/21 12/07/22 atorvastatin 40 mg tablet 40 mg PO HS 11/02/21 12/07/22 aspirin 81 mg tablet,delayed 81 mg PO DAILY 12/07/22 12/07/22 release cholecalciferol (vitamin D3) 50 50 mcg PO DAILY 12/07/22 12/07/22 mcg (2,000 unit) tablet cyanocobalamin (vitamin B-12) 1,000 mcg PO DAILY 12/07/22 12/07/22 1,000 mcg capsule Allergies Allergy/AdvReac Type Severity Reaction Status Date / Time No Known Allergies Allergy Unverified 12/07/22 11:37 General Stated Complaint: RespSymp BOBO: 3 Review of Systems All systems reviewed & are unremarkable except as noted in HPI and below Constitutional Constitutional: Denies chills, Denies fever(s) and Denies weakness Cardiovascular Cardiovascular: Denies chest pain and Denies dyspnea Respiratory Respiratory: Denies dyspnea Gastrointestinal Gastrointestinal: Denies abdominal pain, Denies nausea and Denies vomiting Musculoskeletal Musculoskeletal: Denies joint swelling Neurologic Neurologic: Denies weakness PFSH All Active Problems (Updated 12/07/22 @ 11:41 by Elias Armenta MD) COVID-19 (Acute) COVID (Acute) Medical History Hypertension Social History Smoking/Tobacco Use Status: Current every day Tobacco Type: cigarettes Smoking risk assessment performed?: Yes Alcohol Intake: current Alcohol Intake frequency: 0-2 drinks per day Drug use: Never Substance use type: does not use Do you feel safe at home: Yes Do you feel safe in your relationship?: Yes Exam Const General: no acute distress Orientation: alert HENMT Head: normal to inspection Ears: external ears normal General nose exam: external nose normal Mouth: moist mucous membranes Eyes General: appearance normal, both eyes and all related structures Neck Neck: normal visual inspection Resp Effort & Inspection: normal respiratory effort and able to speak in complete sentences Auscultation: clear to auscultation bilaterally Cardio Jugular venous pressure: no JVD Rate: regular rate Heart Sounds: no murmurs Skin General skin exam: no rashes or lesions noted Neuro General: patient alert and patient oriented x3 Extrem General: normal to inspection Psych Mental Status: mental status grossly normal Course Vital Signs Vital signs: Vital Signs Temperature 36.8 C 12/07/22 10:22 Pulse 74 12/07/22 10:22 Respiratory Rate 12/07/22 10:22 Blood Pressure 127/65 12/07/22 10:22 Pulse Oximetry 100 12/07/22 10:22 Temperature 36.8 C 12/07/22 10:22 Temperature Source Skin 12/07/22 10:22 Pulse 74 12/07/22 10:22 Respiratory Rate 20 12/07/22 10:22 Blood Pressure 127/65 12/07/22 10:22 Blood Pressure Position Sitting 12/07/22 10:22 Pulse Oximetry 100 12/07/22 10:22 Oxygen Delivery Method Room Air 12/07/22 10:22 Oxygen Flow Rate 0 12/07/22 10:22 Pain Level 0 12/07/22 10:22
[2022-12-07 11:08] LABS: Anion Gap 9.3 mmol/L (3-11); BUN 24 mg/dL (7-18); CO2 28.7 mmol/L (21.0-32.0); CREATININE 1.5 mg/dL (0.70-1.30); Calcium 9.1 mg/dL (8.5-10.1); Chloride 100 mmol/L (98-107); Estimated GFR 49.47 (mL/min/1.73m2); Glucose 98 mg/dL (74-106); Sodium 138 mmol/L (136-145)
== END 2022-12-07 12:04 | disposition home or self-care (01) ==
PROVIDERS: Emergency Provider Emergency Medicine; PCP Nurse Practitioner
DX: U07.1 COVID-19 (principal)
CPT/HCPCS: 80048; 87426; 99283

== ENCOUNTER 2022-12-28 19:57 | Emergency (ER) | payer OTHER, SELFPAY ==
[2022-12-28] VITALS (34 sets, daily range): BP systolic 114–169; BP diastolic 46–80; PULSE 65–89; RESP 10–26; TEMP 36.3; O2SAT 95–99
--- NOTE | 2022-12-28 19:45 | RT.EKG_ITS ---
APPROVED REPORT Exam: Resting ECG Reason for Exam: chest pain Patient Location: E HR:84 bpm ECG Measurements Heart Rate 84 AXIS [place] 142 P -18 QRSd 97 QRS 21 QT 388 T 53 QTc 459 Conclusion Sinus rhythm...normal P axis, V-rate 60- 99 sinus rhythm, normal axis, normal intervals
--- NOTE | 2022-12-28 20:15 | DI.CT_ITS ---
Exam(s) CT BRAIN NECK CTA EXAM: CT BRAIN NECK CTA CLINICAL HISTORY: Right leg numbness. TECHNIQUE: Imaging Protocol: Axial CT angiography was performed with multi-slice acquisition and mu lti-planar and 3D reconstructions. CONTRAST MATERIAL: Intravenous: Omnipaque 350 Contrast volume:100 ml COMPARISON: None FINDINGS: CT Head W/O and W contrast: Ventricles and Extra axial spaces: Normal in size and morphology for the patient's age. Hemorrhage: None. Cerebral parenchyma: Normal. Midline shift: None. Brainstem/Cerebellum: Mild atrophy. No infarct or mass. No abnormal enhancing lesion. Calvarium: Normal. Visualized Paranasal sinuses/Mastoids: Clear. Soft Tissues: Unremarkable. Enhancement: Normal. CTA Brain W: Internal Carotid Arteries: Petrous: Normal. Cavernous: Normal. Cerebral: Normal. Middle Cerebral Arteries: Right: No aneurysm, occlusion or significant stenosis. Left: No aneurysm, occlusion or significant stenosis. Anterior Cerebral Arteries: Right: No aneurysm, occlusion or significant stenosis. Left: No aneurysm, occlusion or significant stenosis. Posterior cerebral Arteries: Right: No aneurysm, occlusion or significant stenosis. Left: No aneurysm, occlusion or significant stenosis. Vertebral Arteries: Right: No aneurysm, occlusion or significant stenosis. Left: No aneurysm, occlusion or significant stenosis. Basilar Artery: No aneurysm, occlusion or significant stenosis. CTA Neck W: Common Carotid: Right: No dissection, occlusion or significant stenosis. Left: No dissection, occlusion or significant stenosis. External Carotid: Right: No dissection, occlusion or significant stenosis. Left: No dissection, occlusion or significant stenosis. Internal Carotid: Right: severe stenosis at the origin. Additional area of moderate stenosis distal bulb. No dissecti on, occlusion.. Left: Heavy calcification in the proximal internal carotid artery causing moderate to severe stenosis . No dissection, occlusion. Vertebral Artery: Right: No dissection, occlusion or significant stenosis. Left: No dissection, occlusion or significant stenosis. Lung Apices: Emphysematous changes. Bones: No acute abnormality. Soft Tissues: Normal. IMPRESSION: 1. Normal CTA examination of the [place] of [place]. 2. Unremarkable CT Head. Neck CT: Severe stenosis origin right internal carotid artery. Moderate t o severe stenosis proximal left internal carotid artery. RADIATION DOSE DELIVERED: 2,045.37mGy.cm Total DLP DATA REPOSITORY: All CT scans at this facility are submitted to the National Radiology Data Registry (NRDR) Dose Index Registry (DIR) with the [employer] (ACR). RADIATION OPTIMIZATION: All CT scans at this facility use at least one of these dose optimization te chniques: automated exposure control; mA and/or kV adjustment per patient size (includes targeted exa ms where dose is matched to clinical indication); or iterative reconstruction.
--- NOTE | 2022-12-28 20:15 | DI.CT_ITS ---
Exam(s) CT THORAX ABD/PEL CTA EXAM: CT THORAX ABD/PEL CTA CLINICAL HISTORY: chest pain., right leg numbness. TECHNIQUE: Imaging Protocol: Axial CT angiography was performed with multi-slice acquisition and mu lti-planar and/or 3D reconstructions. CONTRAST MATERIAL: Intravenous: Omnipaque 350 Contrast volume:100 ml COMPARISON: CR XR CHEST 2V PA LATERAL from 07/11/[address] BRAIN NECK CTA from 12/28/2022 FINDINGS: CHEST: Pulmonary Arteries: No evidence of filling defects to suggest pulmonary emboli. Tracheobronchial tree: No bronchiectasis or mucus plugging. Mediastinum and Mehreen: No dominant adenopathy. Fluid within esophagus. No esophageal wall thickening . No visible hiatal hernia. This could indicate reflux. Pulmonary parenchyma: Emphysematous changes. No consolidation or dominant measurable mass. Pleura: No effusion. No pneumothorax. Heart: The heart is notdilated. No coronary artery calcifications are seen. Aorta: Thoracic aorta non-dilated. Moderate atherosclerotic changes. Bones: Unremarkable for age.Mild scoliosis. Tubes, Catheters, and Lines: None. ABDOMEN and PELVIS: Liver: Normal size. Normal density. No suspicious measurable mass. Portal, Superior Mesenteric, and Splenic Veins: Unremarkable. Gallbladder and Biliary Tract: No radiodense calculus. No biliary dilatation. Pancreas: Normal density, no abnormal calcifications or inflammatory process. Spleen: Normal. Adrenals: No masses seen. Kidneys: Normal size, contour and axis. No radiodense stones. No obstructive uropathy. No masses seen . Vasculature: Abdominal aorta non-dilated. Moderate to severe atherosclerotic calcification. Mild st enosis celiac axis. No significant stenosis SMA or right renal artery. [id number] stenosis le ft renal artery. Scattered calcific plaque in the right iliac and common femoral arteries without si gnificant stenosis. Moderate stenosis distal left common iliac artery. Bowel: Stomach not well evaluated as it is empty. Question of wall thickening fundus and body. No o bstruction or bowel wall thickening. Appendix not definitely seen.. Diverticulosis. No evidence o f diverticulitis. Peritoneal Cavity: No ascites, collection or mesenteric inflammatory response. Lymph Nodes: Within normal limits. Soft Tissues: Unremarkable. Bladder: Symmetric distention, no gross wall thickening. Reproductive Organs: Prostate mildly enlarged. Vasectomy clips. Lymph Nodes: Within normal limits. Bones: Unremarkable for age.. IMPRESSION: 1. No evidence of pulmonary embolism or aortic dissection. 2. Fluid in this of this may indicate reflux. 3. No acute abdominal or pelvic process. Question of gastric wall thickening versus under distension . This could indicate gastritis. 4. Atherosclerotic changes without evidence of aneurysm or dissection. Mild to moderate stenosis [place] left renal artery. Mild stenosis celiac trunk. Moderate stenosis distal left common iliac arter y. RADIATION DOSE DELIVERED: 852.85mGy.cm Total DLP DATA REPOSITORY: All CT scans at this facility are submitted to the National Radiology Data Registry (NRDR) Dose Index Registry (DIR) with the [employer] (ACR). RADIATION OPTIMIZATION: All CT scans at this facility use at least one of these dose optimization te chniques: automated exposure control; mA and/or kV adjustment per patient size (includes targeted exa ms where dose is matched to clinical indication); or iterative reconstruction.
--- NOTE | 2022-12-28 20:30 | RT.EKG_ITS ---
APPROVED REPORT Exam: Resting ECG Reason for Exam: chest pain Patient Location: E HR:76 bpm ECG Measurements Heart Rate 76 AXIS [place] 135 P -18 QRSd 98 QRS 27 QT 407 T 41 QTc 458 Conclusion Sinus rhythm...normal P axis, V-rate 60- 99 sinus rhythm, normal axis, nomral intervals
[2022-12-28 20:41] LABS: HCT 40.7 % (40.0-50.0); HGB 13.6 g/dL (13.5-17.5); MCH 30.3 pg (27.0-33.0); MCHC 33.4 % (32.0-36.0); MCV 91 fL (80-95); Platelet Count 277 10^3/uL (130-400); RBC 4.49 10^6/uL (4.36-5.78); RDW 13.2 % (11.8-14.1); RDW-SD 43.6 fL; WBC 24.54 10^3/uL (4.4-10.8)
[2022-12-28] MEDS: Omnipaque 350 MG/ML 100 ML BTL IJ ×2 (20:48→20:49)
[2022-12-28] MEDS: Normal Saline - Diluent 50 ML VIAL IJ (20:50)
[2022-12-28] MEDS: Normal Saline Flush 10 ML SYR IVP (20:52)
[2022-12-28 20:56] LABS: Absolute Lymphocyte Count 12.76 10^3/uL (1.2-3.4); Absolute Monocyte Count 0.74 10^3/uL (0.1-0.8); Absolute Neutrophil Count 11.04 10^3/uL (1.2-6.7); Atypical Lymphocytes % 2; Bands % 2; Diff Comment Manual Differential; RBC Morphology Normal
[2022-12-28 21:01] LABS: ALT 14 U/L (16-63); AST 14 U/L (15-37); Albumin 4.2 g/dL (3.4-5.0); Alkaline Phosphatase 155 U/L (46-116); Anion Gap 10.8 mmol/L (3-11); BUN 26 mg/dL (7-18); Bilirubin, Total 0.5 mg/dL (0.2-1.0); CO2 27.2 mmol/L (21.0-32.0); CREATININE 1.7 mg/dL (0.70-1.30); Calcium 9.4 mg/dL (8.5-10.1); Chloride 100 mmol/L (98-107); Estimated GFR 42.57 (mL/min/1.73m2); Glucose 114 mg/dL (74-106); Magnesium 1.2 mg/dL (1.8-2.4); Sodium 138 mmol/L (136-145); Total Protein 8.4 g/dL (6.4-8.2)
[2022-12-28 21:03] LABS: Lipase 80 U/L (16-77); NT-proBNP 81 pg/mL (<300); Potassium 2.8 mmol/L (3.5-5.1); Troponin I < 50 ng/L (<or=60)
[2022-12-28] MEDS: POTASSIUM CHLORIDE 20 MEQ/100 ML BAG 50 MEQ IVPB (21:37)
[2022-12-28] MEDS: MAGNESIUM SULFATE 2 GM/50 ML BAG IVPB (21:38)
--- NOTE | 2022-12-28 21:43 | DI.VRAD_ITS ---
PROCEDURE INFORMATION: Exam: CTA Head With Contrast, Arteriography Exam date and time: 12/28/2022 8:54 PM Age: 72 years old Clinical indication: Patient HX: R leg numbness TECHNIQUE: Imaging protocol: Computed tomographic angiography of the head with contrast. Exam focused on the arteries. 3D rendering (Not supervised by radiologist): MIP and/or 3D reconstructed images were created by the technologist. COMPARISON: No relevant prior studies available. FINDINGS: ANTERIOR CIRCULATION: Right internal carotid artery: Intracranial segment is patent with no significant stenosis. No aneurysm. Right middle cerebral artery: No occlusion or significant stenosis. No aneurysm. Right anterior cerebral artery: No occlusion or significant stenosis. No aneurysm. Left internal carotid artery: Intracranial segment is patent with no significant stenosis. No aneurysm. Left middle cerebral artery: No occlusion or significant stenosis. No aneurysm. Left anterior cerebral artery: No occlusion or significant stenosis. No aneurysm. POSTERIOR CIRCULATION: Right vertebral artery: No occlusion or significant stenosis. No aneurysm. Left vertebral artery: No occlusion or significant stenosis. No aneurysm. Basilar artery: No occlusion or significant stenosis. No aneurysm. Right posterior cerebral artery: No occlusion or significant stenosis. No aneurysm. Left posterior cerebral artery: origin with hypoplasia of the P1 segment, a normal variation No occlusion or significant stenosis. No aneurysm. Brain: No definite mass, mass effect, or midline shift. Cerebral ventricles: No ventriculomegaly. Bones/joints: Unremarkable. No acute fracture. Soft tissues: Unremarkable. IMPRESSION: No large vessel stenosis or occlusion. PROCEDURE INFORMATION: Exam: CTA Neck With Contrast Exam date and time: 12/28/2022 8:54 PM Age: 72 years old Clinical indication: Patient HX: R leg numbness TECHNIQUE: Imaging protocol: Computed tomographic angiography of the neck with contrast. 3D rendering (Not supervised by radiologist): MIP and/or 3D reconstructed images were created by the technologist. COMPARISON: CR XR CHEST 2V PA LATERAL 07/11/2022 2:53 PM FINDINGS: Right common carotid artery: No stenosis. No dissection or occlusion. Right internal carotid artery: Short-segment severe stenosis in the proximal bulb. Moderate to severe stenosis in the distal bulb No dissection or occlusion. Right external carotid artery: No occlusion or stenosis of the origin. Left common carotid artery: No stenosis. No dissection or occlusion. Left internal carotid artery: No stenosis of the extracranial segment. No dissection or occlusion. Left external carotid artery: No occlusion or stenosis of the origin. Right vertebral artery: No stenosis. No dissection or occlusion. Left vertebral artery: No stenosis. No dissection or occlusion. Soft tissues: No significant soft tissue swelling. Bones/joints: No acute fracture. IMPRESSION: Moderate to severe right-sided carotid stenoses as noted No large vessel occlusion. REFERENCES: NASCET CRITERIA. The degree of stenosis in the cervical segment of the internal carotid artery is based on NASCET criteria. Normal is no stenosis. Mild is less than 50% stenosis. Moderate is 50-69% stenosis. Severe is 70% to 99% stenosis. Total occlusion is no detectable patent lumen. Dictated and Authenticated by: Toño Borden MD. Ordering:LUCRETIA Douglas MD
--- NOTE | 2022-12-28 21:52 | DI.VRAD_ITS ---
PROCEDURE INFORMATION: Exam: CTA Chest With Contrast CTA Abdomen and Pelvis With Contrast Exam date and time: 12/28/2022 9:17 PM Age: 72 years old Clinical indication: Other: Unspecified; Patient HX: Chest pain, R leg numbness TECHNIQUE: Imaging protocol: Computed tomographic angiography of the chest with contrast. Exam focused on the arteries. Computed tomographic angiography of the abdomen and pelvis with contrast. Exam focused on the arteries. 3D rendering (Not supervised by radiologist): MIP and/or 3D reconstructed images were created by the technologist. COMPARISON: CR XR CHEST 2V PA LATERAL 07/11/2022 2:53 PM FINDINGS: VASCULATURE: Pulmonary arteries: No pulmonary emboli. Aorta: Moderate aortic atherosclerotic without aneurysm or dissection. Celiac trunk and mesenteric arteries: Mild stenosis celiac trunk, SMA without significant stenosis. Renal arteries: [id number] chronic appearing stenosis left main renal artery. Iliac arteries: Multifocal atherosclerotic bilaterally without significant stenosis other than probably moderate stenosis distal left common iliac artery. CHEST: Lungs: Moderate pulmonary emphysema.Scattered microatelectasis. No airspace consolidation. Tiny amount of mucus right mainstem bronchus. Pleural spaces: No pneumothorax. No pleural effusion. Heart: No cardiomegaly. No pericardial effusion. Mediastinal space: Small amount of fluid and gas in the esophagus without wall thickening suggesting reflux. ABDOMEN AND PELVIS: Liver: No mass. Gallbladder and bile ducts: No calcified stones. No ductal dilation. Pancreas: No mass. No ductal dilation. Spleen: No splenomegaly. Adrenal glands: No mass. Kidneys and ureters: No renal masses or hydronephrosis bilaterally. Stomach and bowel: Moderate to severe gastric wall thickening. Colonic diverticulosis without diverticulitis. Appendix: No evidence of appendicitis. Intraperitoneal space: No free air. No significant fluid collection. Urinary bladder: No mass. Reproductive: Presumed vasectomy clips. Lymph nodes: No enlarged lymph nodes. Bones/joints: No acute fracture. Soft tissues: Unremarkable. IMPRESSION: 1. Suspected hypertrophic gastritis. 2. No acute arterial pathology. 3. Probable gastroesophageal reflux. 4. Incidental findings as described. Dictated and Authenticated by: Mariana Mansfield MD. Ordering:LUCRETIA Douglas MD
--- NOTE | 2022-12-28 23:14 | W.ED.GENAD ---
Discharge Plan Disposition Patient Disposition: Home Discharge Details Clinical Impression: Chest pain, Stenosis of right carotid artery, Hypokalemia, Hypomagnesemia, Acute renal insufficiency Primary Care Provider: JACQUELINE PAULSON ED Provider: Stella Chavez Home Meds and New Rx's Prescriptions: New potassium chloride 20 mEq tablet extended release 20 meq PO DAILY Qty: 10 0RF magnesium citrate 100 mg capsule 100 mg PO BID Qty: 10 0RF Continued chlorthalidone 25 mg Tablet 25 mg PO DAILY omeprazole 20 mg capsule,delayed release(DR/EC) 20 mg PO DAILY Patient Comments: TAKE 2 CAPSULES BY MOUTH EVERY DAY losartan 100 mg Tablet 100 mg PO DAILY Myrbetriq 25 mg Tablet Extended Release 24 Hr 50 mg PO DAILY ibrutinib 140 mg Tablet 140 mg PO TID Hold Instructions: Resume on 12/14/22. atorvastatin 40 mg Tablet 40 mg PO HS Hold Instructions: Resume on 12/12/22. amlodipine 5 mg Tablet 10 mg PO DAILY Hold Instructions: Resume on 12/12/22. aspirin 81 mg Tablet,Delayed Release (Dr/Ec) 81 mg PO DAILY cholecalciferol (vitamin D3) 50 mcg (2,000 unit) Tablet 50 mcg PO DAILY cyanocobalamin (vitamin B-12) 1,000 mcg Capsule 1,000 mcg PO DAILY Discharge Instructions Instructions: Chest Pain (ED), Hypokalemia (ED), Hypomagnesemia (ED) Additional Instructions: Take the potassium and magnesium as prescribed Follow-up with your doctor at your scheduled appointment, I am concerned that the chlorthalidone is causing renal failure, your creatinine is 1.7 Your magnesium was 1.2, you were supplemented with 2 g of mag and oral mag for home Your potassium was 2.8, you are supplemented 60 mEq in the emergency department I suspect the chlorthalidone could be contributing to this, but please talk to your doctor He also should have an outpatient stress test at their discretion regarding her chest pain Your CTA of your head shows evidence of right carotid stenosis, moderate to severe, please follow-up with your doctor regarding this finding with referral to vascular at their discretion Should you have new or worsening complaints please return for reassessment Referrals: JACQUELINE PAULSON [Primary Care Provider] - 1 day Discharge Data Discharge Date/Time-TO BE ENTERED AT DEPARTURE: 12/29/22 00:19 Medical Decision Making 72-year-old gentleman presenting with chest pain, paresthesias, given age and comorbidities I ordered CT of patient's head and neck, CTA chest abdomen and pelvis, no evidence of PE or significant acute abnormality, of note patient does have a right carotid stenosis, he states that he has been told this before at the [facility], he will follow-up regarding this finding, he is a nonfocal neurological exam, cranial nerves II to XII intact, strength and sensation intact to all 4 extremities, negative pronator drift, negative [id number], negative heel palma, ambulatory steady gait, pupils equal round reactive to light and accommodation, initial troponin negative, EKG without evidence of acute ischemia x2 Take aspirin x4 prior to arrival, electrolytes are abnormal, magnesium of 1.2, supplemented with 2 g of mag, placed on mag for home Suspect secondary to chlorthalidone Potassium of 2.8, given 60 mill equivalents of potassium in the emergency department, no QTc prolongation or evidence of acute hyperkalemia on EKG We will supplement potassium for home Recommendation for chlorthalidone to be reviewed by primary care physician, actually has an appointment tomorrow Also encouraged follow-up regarding carotid stenosis Patient on reassessment is nonfocal neurological exam, he is pending repeat troponin and likely be stable for discharge home should his repeat troponin be within normal limits, will not repeat EKG unless he has return of pain is 2 EKGs in the emergency department without acute abnormality Remained stable and pain-free throughout the remainder of the visit Plan is to discharge home with repeat troponin negative and follow-up with PCP tomorrow at his scheduled appointment Return precautions reviewed HPI General Date/Time Provider Initiated Documentation: 12/28/22 20:15. HPI Narrative: 72-year-old gentleman with history of CLL, carotid stenosis, presents with paresthesias to lower extremities, chest pain which is intermittent, mild headache. States he has a history of headaches, denies any change in medications. States his symptoms started about 530 while he was at rest. Denies any strength change. Has been ambulatory since the event occurred. Denies any vision change. Recent COVID-19, approximately 3 weeks ago, denies any shortness of breath. Describes the chest pain as a very light pressure, left side of chest, not radiational, laying on couch when the pain began. States it lasted for approximately half an hour and then self resolved. Denies any calf pain or swelling. States he has paresthesias to his extremities. History of intermittent headaches, denies acute change. Related Data Home Medications Medication Instructions Recorded Confirmed chlorthalidone 25 mg tablet 25 mg PO DAILY 08/17/21 12/28/22 ibrutinib 140 mg tablet 140 mg PO TID 08/17/21 12/28/22 losartan 100 mg tablet 100 mg PO DAILY 08/17/21 12/28/22 mirabegron 25 mg tablet,extended 50 mg PO DAILY 08/17/21 12/28/22 release 24 hr (Myrbetriq) omeprazole 20 mg capsule,delayed 20 mg PO DAILY 08/17/21 12/28/22 release amlodipine 5 mg tablet 10 mg PO DAILY 11/02/21 12/28/22 atorvastatin 40 mg tablet 40 mg PO HS 11/02/21 12/28/22 aspirin 81 mg tablet,delayed 81 mg PO DAILY 12/07/22 12/28/22 release cholecalciferol (vitamin D3) 50 50 mcg PO DAILY 12/07/22 12/28/22 mcg (2,000 unit) tablet cyanocobalamin (vitamin B-12) 1,000 mcg PO DAILY 12/07/22 12/28/22 1,000 mcg capsule magnesium citrate 100 mg capsule 100 mg PO BID #10 caps 12/28/22 potassium chloride 20 mEq 20 meq PO DAILY #10 tabs 12/28/22 tablet,extended release Previous Rx's Medication Instructions Recorded magnesium citrate 100 mg capsule 100 mg PO BID #10 caps 12/28/22 potassium chloride 20 mEq 20 meq PO DAILY #10 tabs 12/28/22 tablet,extended release Allergies Allergy/AdvReac Type Severity Reaction Status Date / Time No Known Allergies Allergy Unverified 12/07/22 11:37 General Stated Complaint: Chest Pain BOBO: 3 PFSH All Active Problems (Updated 12/28/22 @ 23:23 by FLORY Muir) COVID-19 (Acute) COVID (Acute) Chest pain (Acute) Stenosis of right carotid artery (Acute) Hypokalemia (Acute) Hypomagnesemia (Acute) Acute renal insufficiency (Acute) Medical History Hypertension Social History Smoking/Tobacco Use Status: Current every day Tobacco Type: cigarettes Smoking risk assessment performed?: Yes Alcohol Intake: current Alcohol Intake frequency: 0-2 drinks per day Drug use: Never Substance use type: does not use Do you feel safe at home: Yes Do you feel safe in your relationship?: Yes Course Vital Signs Vital signs: Vital Signs Temperature 36.3 C L 12/28/22 19:59 Pulse 85 12/28/22 19:59 Respiratory Rate 16 12/28/22 19:59 Blood Pressure 169/80 H 12/28/22 19:59 Pulse Oximetry 99 12/28/22 19:59 Temperature 36.3 C L 12/28/22 19:59 Temperature Source Temporal Artery Scan 12/28/22 19:59 Pulse 73 12/28/22 22:29 Pulse 80 12/28/22 22:30 Respiratory Rate 18 12/28/22 22:30 Respiratory Effort Normal 12/28/22 20:04 Respiratory Depth Normal 12/28/22 20:04 Respiratory Pattern Normal 12/28/22 20:04 Blood Pressure 119/58 L 12/28/22 22:29 Blood Pressure Mean 80 12/28/22 22:29 Pulse Oximetry 95 12/28/22 22:30 Oxygen Delivery Method Room Air 12/28/22 19:59 Oxygen Flow Rate 0 12/28/22 19:59 Pain Level 0 12/28/22 19:59 Lab/Test Results Lab/Test Results: Laboratory Tests Range/Units 12/28/22 12/28/22 12/28/22 20:05 20:05 20:05 WBC (4.4-10.8) 10^3/uL 24.54 H RBC (4.36-5.78) 10^6/uL 4.49 Hgb (13.5-17.5) g/dL 13.6 Hct (40.0-50.0) % 40.7 MCV (80-95) fL 91 MCH (27.0-33.0) pg 30.3 MCHC (32.0-36.0) % 33.4 RDW (11.8-14.1) % 13.2 Plt Count (130-400) 10^3/uL 277 MPV (8.0-11.0) fL 12.0 H Immature Gran % 0.0 Neutrophils % 43.0 Band Neutrophils % 2 Lymphocytes % 50.0 Atypical Lymphs % 2 Monocytes % 3.0 Eosinophils % 0.0 Basophils % 0.0 Nucleated RBC % (0.0-0.3) % 0.0 Absolute Neutrophils (1.2-6.7) 10^3/uL 11.04 H Absolute Lymphocytes (1.2-3.4) 10^3/uL 12.76 H Absolute Monocytes (0.1-0.8) 10^3/uL 0.74 Absolute Eosinophils (0.0-0.7) 10^3/uL 0.00 Absolute Basophils (0.0-0.2) 10^3/uL 0.00 RBC Morphology Normal Sodium (136-145) mmol/L 138 Potassium (3.5-5.1) mmol/L 2.8 L* Chloride (98-107) mmol/L 100 Carbon Dioxide (21.0-32.0) mmol/L 27.2 Anion Gap (3-11) mmol/L 10.8 BUN (7-18) mg/dL 26 H Creatinine (0.70-1.30) mg/dL 1.7 H Est GFR (CKD-EPI 2020) (mL/min/1.73m2) 42.57 Glucose (74-106) mg/dL 114 H Calcium (8.5-10.1) mg/dL 9.4 Magnesium (1.8-2.4) mg/dL 1.2 L Total Bilirubin (0.2-1.0) mg/dL 0.5 AST (15-37) U/L 14 L ALT (16-63) U/L 14 L Alkaline Phosphatase (46-116) U/L 155 H Troponin I (<or=60) ng/L < 50 NT-Pro-B Natriuret Pep (<300) pg/mL 81 Total Protein (6.4-8.2) g/dL 8.4 H Albumin (3.4-5.0) g/dL 4.2 Lipase (16-77) U/L 80 H
--- NOTE | 2022-12-28 23:30 | RT.EKG_ITS ---
APPROVED REPORT Exam: Resting ECG Reason for Exam: chest pain Patient Location: E HR:69 bpm ECG Measurements Heart Rate 69 AXIS VT 140 P -37 QRSd 99 QRS 41 QT 435 T 53 QTc 466 Conclusion Sinus rhythm...normal P axis, V-rate 60- 99 Anterior infarct, age indeterminate...Q >35mS, T neg, in V2-V5
[2022-12-28] MEDS: Potassium Chloride 20 MEQ TABCR 40 MEQ PO (23:52)
[2022-12-28 23:58] LABS: Troponin I < 50 ng/L (<or=60)
[2022-12-29] VITALS: PULSE 75; RESP 16; O2SAT 94
[2022-12-29 00:01] VITALS: BP 116/65; PULSE 72; PULSE 74; RESP 21; O2SAT 94
[2022-12-29 00:17] VITALS: BP 116/65; PULSE 72; RESP 16; O2SAT 94
== END 2022-12-29 00:19 | disposition home or self-care (01) ==
PROVIDERS: Emergency Provider Physician Assistant; PCP Nurse Practitioner
DX: R07.9 Chest pain, unspecified (principal); R55 Syncope and collapse; I65.21 Occlusion and stenosis of right carotid artery; E87.6 Hypokalemia; E83.42 Hypomagnesemia; N28.9 Disorder of kidney and ureter, unspecified; C91.00 Acute lymphoblastic leukemia not having achieved remission; F17.290 Nicotine dependence, other tobacco product, uncomplicated; Z79.82 Long term (current) use of aspirin; Z79.899 Other long term (current) drug therapy
CPT/HCPCS: 36415; 70496; 70498; 71275; 80053; 83690; 93005; 96365; 96366; 96368; 99285; 74174; 83735; 83880; 84484; 85025; 93010; 99284; J3480; J3490

== ENCOUNTER 2024-07-08 12:42 | Emergency (ER) | payer OTHER, SELFPAY ==
[2024-07-08 12:53] VITALS: BP 194/76; PULSE 68; RESP 16; TEMP 36.4; O2SAT 98
--- NOTE | 2024-07-08 13:52 | ED.GENADUL_ITS ---
Discharge Plan Disposition Patient Disposition: Home Condition: Stable Discharge Details Clinical Impression: Hypomagnesemia Primary Care Provider: JACQUELINE PAULSON ED Provider: Sreedhar Bravo Home Meds and New Rx's Prescriptions: Continued chlorthalidone 25 mg Tablet 25 mg PO DAILY omeprazole 20 mg capsule,delayed release(DR/EC) 20 mg PO DAILY Patient Comments: TAKE 2 CAPSULES BY MOUTH EVERY DAY losartan 100 mg Tablet 100 mg PO DAILY Myrbetriq 25 mg Tablet Extended Release 24 Hr 50 mg PO DAILY ibrutinib 140 mg Tablet 140 mg PO TID atorvastatin 40 mg Tablet 40 mg PO HS amlodipine 5 mg Tablet 10 mg PO DAILY aspirin 81 mg Tablet,Delayed Release (Dr/Ec) 81 mg PO DAILY cholecalciferol (vitamin D3) 50 mcg (2,000 unit) Tablet 50 mcg PO DAILY cyanocobalamin (vitamin B-12) 1,000 mcg Capsule 1,000 mcg PO DAILY potassium chloride 20 mEq tablet extended release 20 meq PO DAILY Qty: 10 0RF magnesium citrate 100 mg capsule 100 mg PO BID Qty: 10 0RF Discharge Instructions Instructions: Hypomagnesemia Additional Instructions: You were seen in the emergency department for your loose stools x 1 week with 1 isolated dark stool, you have mild anemia I do not suspect any significant GI bleeding. You had mildly low magnesium and we did give you some supplements, please purchase further supplements of magnesium. Please take an [id number] antidiarrheal and a low dose like Imodium A-D. Please follow- up with your MD doctors to schedule any colonoscopy endoscopy, you can trial [id number] famotidine/Pepcid for relief of any mild bleeding from any peptic ulcers, please return for any signs of blood loss, any intractable nausea or vomiting, dizziness, profound black stools or bloody stools. Referrals: [facility] [Outside] [facility] [Outside] JACQUELINE PAULSON [Primary Care Provider] - Discharge Data Discharge Date/Time-TO BE ENTERED AT DEPARTURE: 07/08/24 15:27 HPI General Date/Time Provider Initiated Documentation: 07/08/24 13:36 . HPI Narrative: 73 year-old male presents to ED today by POV/ambulating with a chief complaint of intermittent generalized abdominal pain- one week of loose stool but not completely liquid, 1 isolated dark stool, with onset this week- worried about colon CA as his brothers both had it. Quality described as not painful, no comp lete constipation, no radiation to fever, focal abdominal pain, persistent black or bloody stools, nausea, hematemesis, coffee-ground emesis. Severity is described as mild. Palliating factors include nothing specific attempted. Provoking factors include nothing specific. Events leading up to the incident/Associated Symptoms: [facility], [facility] 2 years ago. Patient not anticoagulated. Related Data Home Medications ?Medication ?Instructions ?Recorded ?Confirmed chlorthalidone 25 mg tablet 25 mg PO DAILY 08/17/21 12/28/22 ibrutinib 140 mg tablet 140 mg PO TID 08/17/21 12/28/22 losartan 100 mg tablet 100 mg PO DAILY 08/17/21 12/28/22 mirabegron 25 mg tablet,extended 50 mg PO DAILY 08/17/21 12/28/22 release 24 hr (Myrbetriq) omeprazole 20 mg capsule,delayed 20 mg PO DAILY 08/17/21 12/28/22 release amlodipine 5 mg tablet 10 mg PO DAILY 11/02/21 12/28/22 atorvastatin 40 mg tablet 40 mg PO HS 11/02/21 12/28/22 aspirin 81 mg tablet,delayed 81 mg PO DAILY 12/07/22 12/28/22 release cholecalciferol (vitamin D3) 50 50 mcg PO DAILY 12/07/22 12/28/22 mcg (2,000 unit) tablet cyanocobalamin (vitamin B-12) 1,000 mcg PO DAILY 12/07/22 12/28/22 1,000 mcg capsule magnesium citrate 100 mg capsule 100 mg PO BID #10 caps 12/28/22 potassium chloride 20 mEq 20 meq PO DAILY #10 tabs 12/28/22 tablet,extended release Previous Rx's ?Medication ?Instructions ?Recorded magnesium citrate 100 mg capsule 100 mg PO BID #10 caps 12/28/22 potassium chloride 20 mEq 20 meq PO DAILY #10 tabs 12/28/22 tablet,extended release Allergies Allergy/AdvReac Type Severity Reaction Status Date / Time lisinopril Allergy Intermediate Swelling/Ed Verified 07/08/24 12:59 alicia General Stated Complaint: Abd Prob BOBO: 3 Review of Systems All systems reviewed & are unremarkable except as noted in HPI and below Exam Narrative Exam Narrative: GENERAL APPEARANCE: Well-nourished, non-toxic, awake and alert, atraumatic, no acute distress. SKIN: Warm, pink, dry, intact, without rashes/lesions/ulcerations. HEAD: Normocephalic, atraumatic, normal hair distribution for gender/age. EYES: Normal conjunctiva, no exudates on lids/lashes. ENT: Nares patent, no circumoral cyanosis, no facial swelling NECK: Supple, trachea midline, painless cervical ROM. LUNGS/CHEST: Lungs CTA bilaterally- no rhonchi/rales/wheezes diffusely, non- labored respirations, normal A/P diameter, symmetrical expansion, no chest wall deformity HEART (CV/PV): Regular rate and rhythm without murmur, no peripheral edema, no JVD. ABDOMEN: Soft, non-distended, no guarding, no tenderness. MSK: Normal ROM, no swelling/deformity to bilateral UEs or LEs, moving all extremities without weakness, no cyanosis, spine midline without tenderness, normal curvature. NEURO: Mental Status AAOx4 - alert to person, place, time, events No facial droop, no forehead involvement. Motor: No focal weakness - strength 5/5 in bilateral UEs and LEs, proximal and distal, symmetric. Sensory: sensation intact to light touch globally. Gait normal: patient ambulated without ataxia into ED room. PSYCH: euthymic, cooperative, pleasant, appropriate speech Course Vital Signs Vital signs: Vital Signs Temperature 36.4 C 07/08/24 12:53 Pulse 68 07/08/24 12:53 Respiratory Rate 16 07/08/24 12:53 Blood Pressure 194/76 H 07/08/24 12:53 Pulse Oximetry 98 07/08/24 12:53 Temperature 36.4 C 07/08/24 12:53 Temperature Source Oral 07/08/24 12:53 Pulse 68 07/08/24 12:53 Respiratory Rate 16 07/08/24 12:53 Blood Pressure 194/76 H 07/08/24 12:53 Pulse Oximetry 98 07/08/24 12:53 Oxygen Delivery Method Room Air 07/08/24 12:53 Oxygen Flow Rate 0 07/08/24 12:53 Medical Decision Making This dictation utilizes [id number] dictation software and may contain unedited grammatical errors. 73 year-old male presents to ED today by POV/ambulating with a chief complaint of intermittent generalized abdominal pain- one week of loose stool but not completely liquid, 1 isolated dark stool, with onset this week- worried about colon CA as his brothers both had it. Quality described as not painful, no complete constipation, no radiation to fever, focal abdominal pain, persistent black or bloody stools, nausea, hematemesis, coffee-ground emesis. Severity is described as mild. Palliating factors include nothing specific attempted. Provoking factors include nothing specific. Events leading up to the incident/Associated Symptoms: [facility], last colonoscopy 2 years ago. Patients' medical history: noncontributory. Family and social history: FHx of colon CA in two brothers, otherwise noncontributory. Pertinent exam findings / vital signs include benign abdomen, no focal tenderness, no CVA tenderness to percussion bilaterally, lungs CTA no respiratory distress. Differential / pathologies of concern include constipation, peptic ulcer, diarrhea, IBS, gastroenteritis, colon CA. Diagnostic studies of: -CBC, CMP, magnesium, lipase. -CBC shows mild anemia - 12.4, prior 2022 shows 13.6 -CMP shows no acute abnormality -Magnesium low, giving PO supplements, likely due to persistent loose stools -lipase WNL Interventions of: -PO 400mg magnesium. ED Course/Assessment/Plan: 73-year-old male presents for concern for colon cancer with 1 week of loose stools, mild abdominal cramping over a week, family history of colon cancer, I explained to him that he had 1 isolated dark stool not likely a significant GI bleed, I recommend he follow-up with the MD to schedule a colonoscopy/endoscopy if he has further concern, please return for any severe signs of weakness, increase in frequency of black stools or hematochezia, counseled him on his low magnesium and encouraged OTC p.o. supplements, objectively nontender abdomen to clinical exam. Findings not consistent with SBO, severe diarrhea, perforated viscus, acute emergent abdominal pathology. Disposition of hypomagnesemia. Patient verbalized understanding of the plan and return to ED criteria and engaged in shared decision making. Medical Records Medical records reviewed: Yes I reviewed the patient's medical records. Lab Data Lab results reviewed: Yes I reviewed the patient's lab results. Labs: Laboratory Tests Range/Units 07/08/24 14:14 WBC (4.4-10.8) 10^3/uL 11.97 H RBC (4.36-5.78) 10^6/uL 4.30 L Hgb (13.5-17.5) g/dL 12.4 L Hct (40.0-50.0) % 37.5 L MCV (80-95) fL 87 MCH (27.0-33.0) pg 28.8 MCHC (32.0-36.0) % 33.1 RDW (11.8-14.1) % 14.6 H Plt Count (130-400) 10^3/uL 222 MPV (8.0-11.0) fL 11.2 H Immature Gran % % 0.3 Neutrophils % % 52.2 Lymphocytes % % 40.2 Monocytes % % 6.4 Eosinophils % % 0.5 Basophils % % 0.4 Nucleated RBC % (0.0-0.3) % 0.0 Absolute Neutrophils (1.2-6.7) 10^3/uL 6.25 Absolute Lymphocytes (1.2-3.4) 10^3/uL 4.81 H Absolute Monocytes (0.1-0.8) 10^3/uL 0.77 Absolute Eosinophils (0.0-0.7) 10^3/uL 0.06 Absolute Basophils (0.0-0.2) 10^3/uL 0.05 Sodium (136-145) mmol/L 142 Potassium (3.5-5.1) mmol/L 3.9 Chloride (98-107) mmol/L 105 Carbon Dioxide (21.0-32.0) mmol/L 28.8 Anion Gap (3-11) mmol/L 8.2 BUN (7-18) mg/dL 17 Creatinine (0.70-1.30) mg/dL 1.2 Est GFR (CKD-EPI 2020) (mL/min/1.73m2) 64.25 Glucose (74-106) mg/dL 99 Calcium (8.5-10.1) mg/dL 9.6 Magnesium (1.8-2.4) mg/dL 1.4 L Total Bilirubin (0.2-1.0) mg/dL 0.5 AST (15-37) U/L 12 L ALT (16-63) U/L 15 L Alkaline Phosphatase (46-116) U/L 108 Total Protein (6.4-8.2) g/dL 7.1 Albumin (3.4-5.0) g/dL 3.8 Lipase (<78) U/L 48 Quality:SDOH Health Related Social Needs: No Data to Display PFSH All Active Problems (Updated 07/08/24 @ 15:05 by FLORY Kaufman) Hypomagnesemia (Acute) COVID (Acute) COVID-19 (Acute) Medical History Hypertension Social History Smoking/Tobacco Use Status: Current every day Tobacco Type: cigarettes Smoking risk assessment performed?: Yes Alcohol Intake: current Alcohol Intake frequency: 0-2 drinks per day Drug use: Never Substance use type: does not use Do you feel safe at home: Yes Do you feel safe in your relationship?: Yes
[2024-07-08 14:25] LABS: Abs Immature Grans 0.04 10^3/uL (0.0-0.06); Absolute Basophil Count 0.05 10^3/uL (0.0-0.2); Absolute Eosinophil Count 0.06 10^3/uL (0.0-0.7); Absolute Lymphocyte Count 4.81 10^3/uL (1.2-3.4); Absolute Monocyte Count 0.77 10^3/uL (0.1-0.8); Basophils % 0.4 %; Eosinophils % 0.5 %; HCT 37.5 % (40.0-50.0); HGB 12.4 g/dL (13.5-17.5); Immature Grans % 0.3 %; Lymphocytes % 40.2 %; MCH 28.8 pg (27.0-33.0); MCHC 33.1 % (32.0-36.0); MCV 87 fL (80-95); MPV 11.2 fL (8.0-11.0); Monocytes % 6.4 %; Neutrophils % 52.2 %; Platelet Count 222 10^3/uL (130-400); RDW 14.6 % (11.8-14.1); RDW-SD 46.7 fL; WBC 11.97 10^3/uL (4.4-10.8)
[2024-07-08 14:26] LABS: Absolute Neutrophil Count 6.25 10^3/uL (1.2-6.7)
[2024-07-08 14:42] LABS: ALT 15 U/L (16-63); AST 12 U/L (15-37); Albumin 3.8 g/dL (3.4-5.0); Alkaline Phosphatase 108 U/L (46-116); Anion Gap 8.2 mmol/L (3-11); BUN 17 mg/dL (7-18); Bilirubin, Total 0.5 mg/dL (0.2-1.0); CO2 28.8 mmol/L (21.0-32.0); CREATININE 1.2 mg/dL (0.70-1.30); Calcium 9.6 mg/dL (8.5-10.1); Chloride 105 mmol/L (98-107); Estimated GFR 64.25 (mL/min/1.73m2); Glucose 99 mg/dL (74-106); Lipase 48 U/L (<78); Magnesium 1.4 mg/dL (1.8-2.4); Potassium 3.9 mmol/L (3.5-5.1); Sodium 142 mmol/L (136-145); Total Protein 7.1 g/dL (6.4-8.2)
[2024-07-08 15:19] VITALS: BP 176/69; PULSE 68; RESP 16; TEMP 36.5; O2SAT 99
[2024-07-08] MEDS: Magnesium Oxide 400 MG TAB PO (15:19)
== END 2024-07-08 15:27 | disposition home or self-care (01) ==
LOC: ER 15:20
PROVIDERS: Emergency Provider Physician Assistant; PCP Nurse Practitioner
DX: R10.84 Generalized abdominal pain (principal); E83.42 Hypomagnesemia; D64.9 Anemia, unspecified; I10 Essential (primary) hypertension; F17.210 Nicotine dependence, cigarettes, uncomplicated; Z80.0 Family history of malignant neoplasm of digestive organs; Z79.82 Long term (current) use of aspirin
CPT/HCPCS: 36415; 80053; 83690; 99283; 83735; 85025

== ENCOUNTER 2025-01-04 15:24 | Emergency (ER) | payer OTHER, SELFPAY ==
[2025-01-04] VITALS (53 sets, daily range): BP systolic 126–143; BP diastolic 62–78; PULSE 91–125; RESP 16–30; TEMP 37.4–38.1; O2SAT 91–96
--- NOTE | 2025-01-04 15:51 | W.ED.GENAD ---
Discharge Plan Disposition Patient Disposition: Home Condition: Stable Discharge Details Clinical Impression: Fever, Hypomagnesemia, Abdominal pain Primary Care Provider: JACQUELINE PAULSON ED Provider: Elias Armenta [place] Meds and New Rx's Prescriptions: New azithromycin [Zithromax Z-Antonio] 250 mg tablet See Rx Instructions .ROUTE .COMPLEX Qty: 6 0RF Rx Instructions: For 250 mg dose pack: take 500 mg today (day 1), then 250 mg for 4 days (days 2-5) amoxicillin-pot clavulanate 875-125 mg tablet 1 tab PO BID Qty: 14 0RF Continued chlorthalidone 25 mg Tablet 25 mg PO DAILY omeprazole 20 mg capsule,delayed release(DR/EC) 20 mg PO DAILY Patient Comments: TAKE 2 CAPSULES BY MOUTH EVERY DAY losartan 100 mg Tablet 100 mg PO DAILY Myrbetriq 25 mg Tablet Extended Release 24 Hr 50 mg PO DAILY ibrutinib 140 mg Tablet 140 mg PO TID atorvastatin 40 mg Tablet 40 mg PO HS amlodipine 5 mg Tablet 10 mg PO DAILY aspirin 81 mg Tablet,Delayed Release (Dr/Ec) 81 mg PO DAILY cholecalciferol (vitamin D3) 50 mcg (2,000 unit) Tablet 50 mcg PO DAILY cyanocobalamin (vitamin B-12) 1,000 mcg Capsule 1,000 mcg PO DAILY potassium chloride 20 mEq tablet extended release 20 meq PO DAILY Qty: 10 0RF magnesium citrate 100 mg capsule 100 mg PO BID Qty: 10 0RF Discharge Instructions Additional Instructions: Your CAT scan did not show any concerning findings other than a possible lung infarction which could be the cause of your fever. Your blood work showed your magnesium level is low and I recommend resuming your magnesium supplement by taking 2/day. Follow-up with your primary care provider within 1 to 2 weeks and have your magnesium level rechecked. If you feel more ill or have new symptoms such as high persistent fevers or difficulty breathing return to the emergency department for reevaluation. HPI General Mode of arrival: ambulatory. Date/Time Provider Initiated Documentation: 01/04/25 15:34. Limitations to Documentation: no limitations. Information obtained by: patient. History of Present Illness 74 year old M presents to the emergency department with the chief complaint of fevers/chills , described as moderate, Patient started experiencing this hour(s) (2) and it has been constant. No relieving factors improve symptom(s), No exacerbating factors reported . Patient notes cough, fever/chills and nausea/vomiting; denies chest pain. Patient did receive the following treatments prior to arrival, none Related Data Home Medications ?Medication ?Instructions ?Recorded ?Confirmed chlorthalidone 25 mg tablet 25 mg PO DAILY 08/17/21 12/28/22 ibrutinib 140 mg tablet 140 mg PO TID 08/17/21 12/28/22 losartan 100 mg tablet 100 mg PO DAILY 08/17/21 12/28/22 mirabegron 25 mg tablet,extended 50 mg PO DAILY 08/17/21 12/28/22 release 24 hr (Myrbetriq) omeprazole 20 mg capsule,delayed 20 mg PO DAILY 08/17/21 12/28/22 release amlodipine 5 mg tablet 10 mg PO DAILY 11/02/21 12/28/22 atorvastatin 40 mg tablet 40 mg PO HS 11/02/21 12/28/22 aspirin 81 mg tablet,delayed 81 mg PO DAILY 12/07/22 12/28/22 release cholecalciferol (vitamin D3) 50 50 mcg PO DAILY 12/07/22 12/28/22 mcg (2,000 unit) tablet cyanocobalamin (vitamin B-12) 1,000 mcg PO DAILY 12/07/22 12/28/22 1,000 mcg capsule magnesium citrate 100 mg capsule 100 mg PO BID #10 caps 12/28/22 potassium chloride 20 mEq 20 meq PO DAILY #10 tabs 12/28/22 tablet,extended release amoxicillin 875 mg-potassium 1 tab PO BID #14 tabs 01/04/25 clavulanate 125 mg tablet azithromycin 250 mg tablet See Rx Instructions PO .COMPLEX #6 01/04/25 (Zithromax Z-Antonio) tabs Previous Rx's ?Medication ?Instructions ?Recorded magnesium citrate 100 mg capsule 100 mg PO BID #10 caps 12/28/22 potassium chloride 20 mEq 20 meq PO DAILY #10 tabs 12/28/22 tablet,extended release amoxicillin 875 mg-potassium 1 tab PO BID #14 tabs 01/04/25 clavulanate 125 mg tablet azithromycin 250 mg tablet See Rx Instructions PO .COMPLEX #6 01/04/25 (Zithromax Z-Antonio) tabs Allergies Allergy/AdvReac Type Severity Reaction Status Date / Time lisinopril Allergy Intermediate Swelling/Ed Verified 07/08/24 12:59 alicia General Stated Complaint: Fever BOBO: 2 Review of Systems All systems reviewed & are unremarkable except as noted in HPI and below Constitutional Constitutional: Reports chills, Reports fever(s) and Denies weakness Cardiovascular Cardiovascular: Denies chest pain and Denies dyspnea Respiratory Respiratory: Reports cough and Denies dyspnea Gastrointestinal Gastrointestinal: Reports abdominal pain, Reports nausea and Reports vomiting Neurologic Neurologic: Denies weakness Exam Const General: no acute distress Orientation: alert HENMT Head: normal to inspection Ears: external ears normal General nose exam: external nose normal Mouth: moist mucous membranes Eyes General: appearance normal, both eyes and all related structures Neck Neck: normal visual inspection Resp Effort & Inspection: normal respiratory effort and able to speak in complete sentences Auscultation: clear to auscultation bilaterally Cardio Jugular venous pressure: no JVD Rate: regular rate GI Palpation: tender Skin General skin exam: no rashes or lesions noted Neuro General: patient alert and patient oriented x3 Extrem General: normal to inspection Psych Mental Status: mental status grossly normal Course Vital Signs Vital signs: Vital Signs Temperature 38.1 C H 01/04/25 15:33 Pulse 125 H 01/04/25 15:33 Respiratory Rate 21 01/04/25 15:33 Blood Pressure 126/78 01/04/25 15:33 Pulse Oximetry 91 L 01/04/25 15:33 Temperature 38.1 C H 01/04/25 15:37 Temperature Source Oral 01/04/25 15:37 Pulse 125 H 01/04/25 15:37 Respiratory Rate 21 01/04/25 15:37 Blood Pressure 126/78 01/04/25 15:37 Blood Pressure Position Sitting 01/04/25 15:37 Pulse Oximetry 91 L 01/04/25 15:37 Oxygen Delivery Method Room Air 01/04/25 15:37 Oxygen Flow Rate 0 01/04/25 15:37 Pain Level 0 01/04/25 15:37 Lab/Test Results Lab/Test Results: 01/04/25 15:37 Blood Blood Culture - Pending 01/04/25 15:37 Blood Blood Culture - Pending Medical Decision Making 74-year-old male with a history of CLL, hypertension who comes in with acute onset of fevers and chills. He says that he had a colonoscopy and endoscopy at the [facility] today and had biopsies done. He says he was feeling well but then started having fevers and chills and nausea vomiting and abdominal discomfort. Denies any severe abdominal pain. Denies any chest pain but has had a cough but states he is also a smoker and that he has a cough at baseline. He is oriented x 4 and is noted to be febrile and tachycardic. I suspect sepsis and given his biopsies and procedures done today I will obtain a CT chest abdomen pelvis along with CBC, CMP lactate and procalcitonin and a Fluvid. No headaches or neck stiffness to suggest [employer] infection. pt's wbc 19 so zosyn ordered while imaging and labs pending Labs also show a magnesium of 0.5 so IV repletion ordered and also ordered IV potassium for potassium of 3.2. CT imaging shows ground glass opacities in the left side of his lung unclear if this infectious or aspiration, also thickening of the distal esophagus but just had endoscopy so doubt cancer. Patient is feeling significantly better, heart rate 92. Says he has no chest pain or difficulty breathing. We discussed admission for antibiotics and also observation he prefers outpatient management and has medical decision making capacity. I feel this is reasonable. He is post be taking oral magnesium supplements but he says he stopped those a few days ago so I recommended resuming them. He will have his magnesium level rechecked. Return precautions given Patient tolerated his infusions well and was feeling very well still requesting discharge and given his well appearance I feel this is reasonable. Return precautions again discussed. Differential Diagnosis Differential Diagnosis: pneumoperitonem, sepsis Medical Records Medical records reviewed: Yes I reviewed the patient's medical records. Lab Data Lab results reviewed: Yes I reviewed the patient's lab results. PFSH All Active Problems (Updated 01/04/25 @ 19:26 by Elias Armenta MD) Abdominal pain (Acute) Hypomagnesemia (Acute) Fever (Acute) COVID (Acute) COVID-19 (Acute) Medical History Hypertension Social History Smoking/Tobacco Use Status: Current every day Tobacco Type: cigarettes Smoking risk assessment performed?: Yes Alcohol Intake: current Alcohol Intake frequency: 0-2 drinks per day Drug use: Never Substance use type: does not use Do you feel safe at home: Yes Do you feel safe in your relationship?: Yes
[2025-01-04 16:01] LABS: BE (Venous) -1 mmol/L (-2-3); HCO3 (Venous) 24 mmol/L (23-28); O2 Sat (Venous) 32 %; TCO2 (Venous) 23 mmol/L (24-29); pCO2 (Venous) 41 mmHg (41-51); pO2 (Venous) 21 mmHg
[2025-01-04 16:02] LABS: Abs Immature Grans 0.07 10^3/uL (0.0-0.06); HCT 36.3 % (40.0-50.0); HGB 11.7 g/dL (13.5-17.5); Immature Grans % 0.4 %; MCH 27.7 pg (27.0-33.0); MCHC 32.2 % (32.0-36.0); MCV 86 fL (80-95); MPV 11.8 fL (8.0-11.0); Platelet Count 207 10^3/uL (130-400); RBC 4.23 10^6/uL (4.36-5.78); RDW 14.0 % (11.8-14.1); RDW-SD 44.0 fL; WBC 19.29 10^3/uL (4.4-10.8)
[2025-01-04] MEDS: Normal Saline 1,000 ML 1000 ML IV (16:03)
[2025-01-04] MEDS: ACETAMINOPHEN 1,000 MG/100 ML BAG 400 MG IVPB (16:04)
[2025-01-04] MEDS: Normal Saline - Diluent 50 ML VIAL IJ (16:12)
[2025-01-04] MEDS: Omnipaque 350 MG/ML 100 ML BTL IJ (16:13)
[2025-01-04] MEDS: Normal Saline Flush 10 ML SYR IVP (16:13)
[2025-01-04 16:20] LABS: ALT 22 U/L (16-63); AST 18 U/L (15-37); Albumin 3.9 g/dL (3.4-5.0); Alkaline Phosphatase 132 U/L (46-116); Anion Gap 16.1 mmol/L (3-11); BUN 17 mg/dL (7-18); Bilirubin, Direct 0.1 mg/dL (0.0-0.2); Bilirubin, Total 0.6 mg/dL (0.2-1.0); CO2 24.9 mmol/L (21.0-32.0); Calcium 8.1 mg/dL (8.5-10.1); Chloride 99 mmol/L (98-107); Estimated GFR 58.01 (mL/min/1.73m2); Glucose 119 mg/dL (74-106); Lipase 114 U/L (<78); Potassium 3.2 mmol/L (3.5-5.1); Sodium 140 mmol/L (136-145); Total Protein 7.3 g/dL (6.4-8.2)
--- NOTE | 2025-01-04 16:25 | DI.CT_ITS ---
Exam(s) CT CHEST PE ABD PELVIS W EXAM: CT CHEST PE ABD PELVIS W CLINICAL HISTORY: fevers/chills, colonoscopy/endoscopy today, abd pn. TECHNIQUE: Imaging Protocol: Axial CT angiography was performed with multi- slice acquisition and multi-planar and/or 3D reconstructions. Computer aided detection (CAD) was utilized. CONTRAST MATERIAL: Intravenous: Omnipaque 350 Contrast volume:65 ml COMPARISON: CT CT THORAX ABD/PEL CTA from 12/28/2022 FINDINGS: CHEST: Pulmonary Arteries: No evidence of filling defects to suggest pulmonary emboli. Tracheobronchial tree: No bronchiectasis or mucus plugging. Mediastinum and Mehreen: No dominant adenopathy or fluid collection. Marked esophageal thickening distally, not present previously. Pulmonary parenchyma: No consolidation or dominant measurable mass. Emphysematous changes in the upper lobes. Multifocal ground-glass infiltrates are noted in the left upper and lower lobes. Stable small nodule in the left upper lobe. Stable small nodule lateral left lower lobe. Pleura: No effusion. No pneumothorax. Heart: The heart is notdilated. No coronary artery calcifications are seen. Small pericardial effusion. Aorta: Thoracic aorta non-dilated. Mild atherosclerotic changes. Bones: Unremarkable for age. Tubes, Catheters, and Lines: None. Soft tissues: Unremarkable. ABDOMEN and PELVIS: Liver: Normal size. Normal density. No suspicious measurable mass. Portal, Superior Mesenteric, and Splenic Veins: Unremarkable. Gallbladder and Biliary Tract: Small stones in the dependent portion of the gallbladder. No wall thickening. No biliary dilatation. Pancreas: Normal density, no abnormal calcifications or inflammatory process. Spleen: Normal. Adrenals: No masses seen. Kidneys: Normal size, contour and axis. No radiodense stones. No obstructive uropathy. No masses seen. Vasculature: Abdominal aorta non-dilated. Moderate atherosclerotic changes. Bowel: Abnormal thickening of the distal esophagus. The wall of the stomach also appears thick walled at the fundus and body. This appears similar to the previous exam. The stomach is nearly empty. No small bowel obstruction or bowel wall thickening. The colon is completely decompressed. No focal area of wall thickening. No evidence of perforation. Peritoneal Cavity: No ascites, collection or mesenteric inflammatory response. There are several abnormally enlarged mesenteric lymph nodes, beginning at the level of beneath the pancreas in the midline. The more superior node measuring 19 millimeters. There is a node eccentric toward the right which measures 2.6 x 1.6 cm. More inferior right-sided mesenteric node measures 16 x 23 millimeters. Lymph Nodes: Within normal limits. Soft Tissues: Unremarkable. Bladder: Nearly empty. Unremarkable. Reproductive Organs: Unremarkable as visualized. Bones: Unremarkable for age.. IMPRESSION: 1. No evidence of pulmonary embolism. 2. Multifocal left-sided of ground-glass opacities could be infectious versus aspiration. 3. Abnormal wall thickening of the distal esophagus. Abnormal thickening of the fundus and body of the stomach. Malignancy is not excluded. There are several abnormally enlarged mesenteric lymph nodes. 4. The colon is decompressed but unremarkable. Findings were called to Dr. Armenta of the emergency department. RADIATION DOSE DELIVERED: Total DLP DATA REPOSITORY: All CT scans at this facility are submitted to the National Radiology Data Registry (NRDR) Dose Index Registry (DIR) with the [employer] (A[employer]). RADIATION OPTIMIZATION: All CT scans at this facility use at least one of these dose optimization techniques: automated exposure control; mA and/or kV adjustment per patient size (includes targeted exams where dose is matched to clinical indication); or iterative reconstruction.
[2025-01-04 16:33] LABS: Magnesium 0.5 mg/dL (1.8-2.4)
[2025-01-04 16:40] LABS: Procalcitonin 0.19 ng/mL
[2025-01-04] MEDS: PIPERACILLIN/TAZO 4.5 GM in Normal Saline 100 ML IVPB (16:50)
[2025-01-04 16:53] LABS: COVID-19 PCR Negative (Negative); RSV PCR Negative (Negative)
[2025-01-04] MEDS: Lidocaine 2% Jelly 11 ML SYR (17:01)
[2025-01-04 17:10] LABS: Glucose Negative (Negative)
[2025-01-04] MEDS: POTASSIUM CHLORIDE 10 MEQ/100 ML BAG 100 MEQ IV_INF (17:17)
[2025-01-04 17:24] LABS: C & S Indicated? No; RBC 0-2 HPF (0-2)
[2025-01-04] MEDS: MAGNESIUM SULFATE 2 GM/50 ML BAG IV_INF (17:27)
== END 2025-01-04 19:32 | disposition home or self-care (01) ==
PROVIDERS: Emergency Provider Emergency Medicine; PCP Nurse Practitioner
DX: R50.9 Fever, unspecified (principal); R10.9 Unspecified abdominal pain; E83.42 Hypomagnesemia
CPT/HCPCS: 99285; 99284; 36415; 51702; 96368; 71275; 74177; 80053; 82805; 83690; 84145; 87040; 87637; 96365; 81003; 81015; 82248; 83605; 83735; 85025; J0131; J2543; J3475; J3480; J3490